=== PATIENT | female | born 1940 | race Caucasian/White ===

== ENCOUNTER 2016-10-13 01:46 | Emergency (ER) | payer OTHER ==
[2016-10-13 02:03] VITALS: BMI 30.1
--- NOTE | 2016-10-13 02:34 | DR.EXTPAIN ---
HPI - Time seen Time seen: 02:10 - PCP Primary Care Physician: CHRIS - HPI Comment HPI Comment: FELL AT HOME. LT HIP, LOWER BACK PAIN AND NECK PAIN. HEADACHE, NO LOC. WAS ALREADY WHEELCHAIR BOUND MOSTLY. [facility] AND EMS RESPONDED AND TRANSPORTED HER TO ED. PATIENT SLEEPY BUT WAKES UP AND ANSWER QUESTIONS. - Complaint/Symptoms Chief Complaint Doctor Comments: FELL, LT HIP AND NECK PAIN, AND LOWER BACK PAIN. HAVING HEADACHE. Chief Complaint:: PUSHED MEDICAL ALERT BUTTON AFTER FALLING FROM WHEELCHAIR IN BATHROOM AT HOME. COMPLAIN OF PAIN TO LEFT HIP - Nurses notes reviewed Nurses Notes Review: Yes - Source History Provided: Patient, EMS - Mode of arrival Mode of Arrival: EMS - Timing Onset of Chief Complaint: 10/13/16 - Context History of: Arthritis, Hip Operation (RT) - Associated signs and symptoms Associated Signs and Symptoms: Pain, Swelling, Bruising PMH - PMH Past Medical History: Yes Past Medical History: Anxiety, Arthritis, Asthma, CHF, COPD, Coronary Artery Disease, CVA, Dementia, Depression, Dyslipidemia, GERD, Gout, Hypertension, Hypothyroidism, Kidney Stones Past Surgical History: Yes Surgical History: Abdominal Surgery, [employer] Surgery, Hysterectomy, Joint Replacement - Family History History of Family Medical Conditions: Yes Family Medical History: Coronary Artery Disease, Heart Failure, Hypertension - Social History Do you use any recreational Drugs:: No Lives With: Family Lives Where: Home - infectious screening In the last 2 months have you had wt loss of >10#?: NO Have you had fever, night sweats or hemotysis?: No Have you traveled outside the country in the last 6 months?: No Isolation: Standard ROS - Review of Systems Constitutional: Weakness, Fatigue. negative: Chills, Fever Eyes: negative: Eye Pain, Discharge ENTM: negative: Ear Pain, Nose Discharge, Nose Congestion, Throat Pain Respiratoy: negative: Productive Cough, Non-Productive Cough, Short of Breath, Wheezing, Hemoptysis Cardiovascular: Edema. negative: Chest Pain Gastrointestinal/Abdominal: negative: Abdominal Pain, Constipation, Diarrhea, Nausea, Vomiting Genitourinary: negative: Dysuria, Hematuria Neurological: Headache, Numbness (CHRONIC), Weakness Musculoskeletal: Back Pain, Joint Swelling, Muscle Pain, Neck Pain, Left, Hip Integumentary: No Symptoms Reported Hematologic/Lymphatic: Easy Bruising Endocrine: No Symptoms Reported All Other Systems: Reviewed and Negative PE - Vital Signs Vitals: Temperature 97.0 F Pulse Rate [Right] 75 Pulse Rate 70 Respiratory Rate 18 Blood Pressure [Right Arm] 162/87 Blood Pressure [Left Arm] 119/58 Blood Pressure 140/78 O2 Sat by Pulse Oximetry 98 - General Limitations: No Limitations General Appearance: Alert (BUT FULLY AROUSABLE.), Other - Head Head Exam: Normal Inspection - Eyes Eye exam: PERRL, EOMI. negative: Scleral Icterus, Conjunctival Injection - ENT ENT Exam: Normal Oropharynx, Normal External Ear Exam, Mucous Membranes Moist, TM's Normal Bilaterally - Neck Neck Exam: Trachea Midline, Tenderness (POST LOWER NECK) - Chest Chest Inspection: Symmetric Chest Wall Rise - Respiratory Respiratory Exam: Normal Lung Sounds Bilat Respiratory Exam: Bilateral Clear to Auscultation - Cardiovascular Cardiovascular Exam: Regular Rate, Normal Rhythm, Normal Heart Sounds - Abdominal Exam Abdominal Exam: Normal Bowel Sounds, Soft. negative: Tenderness - Extremities Extremities Exam: Tenderness (LEFT HIP.), Joint Swelling (LT HIP) - Back Back Exam: Tenderness (LOWER BACK), Paraspinal Tenderness - Neurological Neurological Exam: Alert, Oriented X3 - Psychiatric Psychiatric Exam: Other (SLEEPY) - Skin Skin Exam: Erythema MDM - Differential Diagnosis Differential Diagnosis: Contusion, Fracture, Sprain Course - Treatment Treatment: SEE ORDERS. PATIENT WOKE UP AND WAS FULLY ALERT BY THE TIME XRAY REPORT WERE DISCUSS. - Education/Counseling Education/Counseling: Patient, Education Educated On: Diagnosis, Needs for Follow Up ROR - XRAY XRAY Interpreted by: Radiologist XRAY Findings: REPORT DISCUSS WITH PATIENT. - Diagnosis Discharge Problem: Multiple contusions Repetitive strain injury of cervical spine Qualifiers: Encounter type: initial encounter Qualified Code(s): S16.1XXA - Strain of muscle, fascia and tendon at neck level, initial encounter Sprain hip/thigh Qualifiers: Encounter type: initial encounter Laterality: left Qualified Code(s): S73.102A - Unspecified sprain of left hip, initial encounter Lower back pain Qualifiers: Chronicity: acute Back pain laterality: bilateral Sciatica presence: without sciatica Qualified Code(s): M54.5 - Low back pain - Discharge Plan Disposition: 01 HOME, SELF-CARE Condition: Stable - Follow ups/Referrals Follow ups/Referrals: NATHALY PEREZ [Primary Care Provider] - 3 days - Instructions Instructions: Cervical Strain and Sprain With Rehab-SportsMed, Hip Pain, Lumbosacral Strain Additional Instructions: RETURN TO ED IF WORSE. CONTINUE HOME MEDICATIONS FOR PAIN.
--- NOTE | 2016-10-13 03:45 | RAD ---
EXAM: Left hip x-ray INDICATION: Hip Pain COMPARISION: No priors for comparison TECHNIQUE: Two views FINDINGS: There is complete loss of the left hip joint space superiorly. There is subchondral cyst formation a nd sclerosis consistent with advanced osteoarthritis. There is a right hip arthroplasty. The visuali zed bones of the pelvis are intact. IMPRESSION: Severe left hip osteoarthritis. No acute bony abnormality. Reported By:
--- NOTE | 2016-10-13 03:54 | CT ---
EXAM: CT CERVICAL SPINE WITHOUT CONTRAST INDICATION: Fall, neck pain COMPARISION: No priors TECHNIQUE: Axial CT examination of the cervical spine was performed without intravenous contrast. Coronal and s agittal planes were reconstructed using the axial data. FINDINGS: There are erosions involving the odontoid process of C2. Advanced facet arthropathy is present bilat erally at C3-4 creating a grade 1 spondylolisthesis. Advanced degenerative disc changes are present C5-6. Milder degenerative disc changes are seen in the remainder the cervical spine. No acute fractu re or subluxation identified. The central canal is patent. IMPRESSION: 1: Odontoid erosions are present. These changes may be associated with rheumatoid arthritis. 2: Advanced facet arthropathy is present bilaterally at C3-4 which creates a grade 1 spondylolisthes is. 3: Degenerative disc changes are seen throughout the cervical spine and most advanced at C5-6. Reported By:
--- NOTE | 2016-10-13 03:55 | CT ---
EXAM: CT BRAIN WITHOUT CONTRAST INDICATION: Fall, headache COMPARISION: No Priors TECHNIQUE: Routine axial CT of the brain was performed without intravenous contrast. FINDINGS: There is bilateral cortical atrophy. The ventricular system is not abnormally dilated. No intra or extra-axial mass or hemorrhage. The hubbard-white junction is preserved. There is no evidence of subacu te ischemic change. The basilar cisterns are clear. The skull is intact. The paranasal sinuses and mastoid air cells are clear. IMPRESSION: There is bilateral cortical atrophy as described above. No acute abnormality identified. Reported By:
--- NOTE | 2016-10-13 03:57 | CT ---
EXAM: CT LUMBAR SPINE WITHOUT CONTRAST INDICATION: Fall, low back pain COMPARISION: No priors TECHNIQUE: Axial CT examination of the lumbar spine was performed without intravenous contrast. Coronal and sag ittal planes were reconstructed using the axial data. FINDINGS: Old compression fractures with vertebroplasty are present at T12, L1, and L3. There is a mild concav e superior endplate insufficiency fracture at L4. There is diffuse osteopenia. No acute fracture christiano ntified. Chronic retropulsed posterior vertebral fractures are present at T12, L1, L3, and L4. The f acets are intact. IMPRESSION: No acute abnormalities identified. Multiple old compression fractures of the lumbar and lower thorac ic spine are present. There is been prior vertebroplasty at multiple levels as described above. Reported By:
[2016-10-13 05:10] VITALS: BP 162/87
== END 2016-10-13 05:32 | disposition home or self-care (01) ==
LOC: ER 01:46
DX: S16.1XXA Strain of muscle, fascia and tendon at neck level, initial encounter (principal); S73.102A Unspecified sprain of left hip, initial encounter; T14.8 Other injury of unspecified body region; M54.5 Low back pain; M16.12 Unilateral primary osteoarthritis, left hip; M12.9 Arthropathy, unspecified; W19.XXXA Unspecified fall, initial encounter; Y92.009 Unspecified place in unspecified non-institutional (private) residence as the place of occurrence of the external cause
CPT/HCPCS: 70450; 72125; 72131; 73501; 96365; 99283

== ENCOUNTER 2023-05-28 00:06 | Inpatient (IN) ==
--- NOTE | 2023-05-28 00:31 | DR.EXTPAIN ---
HPI Time seen Time Seen by Provider: 05/28/23 00:27 PCP Primary Care Physician: Dr. Calvillo Complaint/Symptoms Chief Complaint Doctor Comments: Patient complain of bilateral lower leg pain and swelling for about 2 weeks has gotten worse. States that she has been taking her medicine her diuretics and all but has not been able to urinate and she has now problems ambulating. Chief Complaint:: Patient brought into the Ed today by EMS with c/o bilateral lower leg pain and swelling Source History Provided: Patient and EMS Mode of arrival Mode of Arrival: EMS Timing Onset of Chief Complaint: 05/14/23 PMH PMH Past Medical History: Yes Past Medical History: CHF Past Surgical History: No Surgical History: Abdominal Surgery, [employer] Surgery, Hysterectomy, Joint Replacement and Ortho Surgery Family History History of Family Medical Conditions: No Family Medical History: Coronary Artery Disease, Heart Failure and Hypertension Social History Does patient currently use any type of tobacco product: No Have you used tobacco products in the last 12 months: No Type of Tobacco Use: None Does any household member use tobacco: No Alcohol Use: None Do you use any recreational Drugs:: No Lives With: Alone Lives Where: Home Infectious screening In the last 2 months have you had wt loss of >10#?: NO Have you had fever, night sweats or hemotysis?: No Have you traveled outside the country in the last 6 months?: No Isolation: Standard ROS Review of Systems Constitutional: Other (bilateral lower leg pain) Eyes: No Symptoms Reported ENTM: No Symptoms Reported Respiratoy: Non-Productive Cough and Wheezing Cardiovascular: No Symptoms Reported Gastrointestinal/Abdominal: No Symptoms Reported Genitourinary: No Symptoms Reported Neurological: No Symptoms Reported Musculoskeletal: Leg (bilateral lower leg pain) Integumentary: No Symptoms Reported Hematologic/Lymphatic: No Symptoms Reported Endocrine: No Symptoms Reported Psychiatric: No Symptoms Reported PE Vital Signs Vitals: Vital Signs Temperature 98.1 F Pulse Rate 69 Respiratory Rate 20 Blood Pressure 127/72 O2 Sat by Pulse Oximetry 99 General Limitations: No Limitations General Appearance: In Distress (mild distress) Head Head Exam: Normal Inspection, Atraumatic and Normocephalic Eyes Eye exam: Normal Appearance ENT ENT Exam: Mucous Membranes Moist Neck Neck Exam: Normal Inspection, Full ROM and Trachea Midline Chest Chest Inspection: Normal Inspection and Symmetric Chest Wall Rise Respiratory Respiratory Exam: Other (minimal wheezing) Respiratory Exam: Bilateral: Rales Cardiovascular Cardiovascular Exam: Regular Rate Abdominal Exam Abdominal Exam: Normal Inspection Extremities Extremities Exam: Tenderness (bilateral lower legs) and Edema (bilateral lower legs) Upper Extremities Shoulder Exam: Normal Inspection Arm Exam: Normal Inspection Elbow Exam: Normal Inspection Forearm Exam: Normal Inspection Hand Exam: Normal Inspection Lower Extremities Hip/Pelvis Exam: Normal Inspection and Full ROM Upper Leg Exam: Normal Inspection Knee Exam: Normal Inspection Lower Leg Exam: Tenderness and Swelling Ankle Exam: Tenderness and Swelling Foot/Toe Exam: Tenderness and Swelling Gait Exam: Not Tested/Not Observed Back Back Exam: Normal Inspection Neurological Neurological Exam: Alert, Oriented X3 and CN II-XII Intact Psychiatric Psychiatric Exam: Depressed Skin Skin Exam: Warm, Dry and Intact MDM Differential Diagnosis Differential Diagnosis: Other (chf,urti,peripheral neuropathy) COURSE Treatment Treatment: Patient remained relatively stable during ER evaluation. She was found to have mild CHF with a BNP of 486 and she had some little bit to decrease GFR was 43 BUN was slightly elevated 139 creatinine was little bit elevated at 1.26. We did a check x-ray and interpreted as having some mild CHF with c ardiomegaly patient did have a little bit of pulmonary edema left greater than right. There was no infiltrate noted. Patient was given 40 of Lasix IV in the ER and she had a Moore catheter placed. I talked to Dr. Markham at 022 3 AM and he stated to refer the patient to observation for further treatment of mild CHF and pulmonary edema. [facility] Labs Reviewed Laboratory Results Reviewed?: Yes 05/28/23 00:58 05/28/23 00:58 Laboratory: WBC 5.1 X10^3/uL (3.6-10.0) 05/28/23 00:58 RBC 3.48 X10^6/uL (3.5-5.4) L 05/28/23 00:58 Hgb 11.1 g/dL (12.0-16.0) L 05/28/23 00:58 Hct 33.7 % (36.0-47.0) L 05/28/23 00:58 MCV 96.8 fL (80.0-100.0) 05/28/23 00:58 MCH 31.7 pg (27.0-34.0) 05/28/23 00:58 MCHC 32.8 g/dL (33.0-35.0) L 05/28/23 00:58 RDW 15.4 % (11.6-16.5) 05/28/23 00:58 Plt Count 135 X10^3/uL (150.0-450.0) L 05/28/23 00:58 MPV 8.4 fL (7.4-11.0) 05/28/23 00:58 Neut % (Auto) 54.1 % (42.0-75.0) 05/28/23 00:58 Lymph % (Auto) 24.1 % (21.0-51.0) 05/28/23 00:58 [place] % (Auto) 13.1 % (0.0-13.0) H 05/28/23 00:58 Eos % (Auto) 7.7 % (0.9-2.9) H 05/28/23 00:58 Baso % (Auto) 1.0 % (0.2-1.0) 05/28/23 00:58 Neut # (Auto) 2.7 x10^3/uL (2.2-4.8) 05/28/23 00:58 Lymph # (Auto) 1.2 X10^3/uL (1.3-2.9) L 05/28/23 00:58 [place] # (Auto) 0.7 x10^3/uL (0.3-0.8) 05/28/23 00:58 Eos # (Auto) 0.4 x10^3/uL (0.0-0.2) H 05/28/23 00:58 Baso # (Auto) 0.1 X10^3/uL (0.0-0.1) 05/28/23 00:58 Absolute Nucleated RBC 0.1 /100WBC 05/28/23 00:58 PT 39.5 SECONDS (11.8-14.3) 05/28/23 00:58 INR Target Range - 05/28/23 00:58 INR 4.15 (0.8-1.3) H 05/28/23 00:58 APTT 46.0 SECONDS (22.9-36.5) H 05/28/23 00:58 PTT Comment - 05/28/23 00:58 Sodium 137 mmol/L (136-145) 05/28/23 00:58 Corrected Sodium TNP 05/28/23 00:58 Potassium 4.3 mmol/L (3.5-5.1) 05/28/23 00:58 Chloride 104 mmol/L (98-107) 05/28/23 00:58 Carbon Dioxide 29.9 mmol/L (21-32) 05/28/23 00:58 BUN 39 mg/dL (7-18) H 05/28/23 00:58 Creatinine 1.26 mg/dL (0.55-1.02) H 05/28/23 00:58 Est GFR (MDRD) Af Amer 52 (>60) L 05/28/23 00:58 Est GFR (MDRD) Non-Af 43 (>60) L 05/28/23 00:58 Glucose 100 mg/dL (65-99) H 05/28/23 00:58 Calcium 8.6 mg/dL (8.5-10.1) 05/28/23 00:58 Corrected Calcium TNP 05/28/23 00:58 Total Bilirubin 0.30 mg/dL (0.2-1.0) 05/28/23 00:58 AST 26 Units/L (15-37) 05/28/23 00:58 ALT 39 Units/L (12-78) 05/28/23 00:58 Alkaline Phosphatase 89 Units/L (46-116) 05/28/23 00:58 Creatine Kinase 65 Units/L (26-192) 05/28/23 00:58 Troponin I High Sens 6.9 ng/L (4.0-60.0) 05/28/23 00:58 B-Natriuretic Peptide 486 pg/mL (0-79) H 05/28/23 00:58 Total Protein 6.9 g/dL (6.4-8.2) 05/28/23 00:58 Albumin 3.5 g/dL (3.4-5.0) 05/28/23 00:58 Globulin 3.4 g/dL (2.5-4.5) 05/28/23 00:58 Albumin/Globulin Ratio 1.0 Ratio (1.1-2.1) L 05/28/23 00:58 SARS-CoV-2 (PCR) Negative (NEGATIVE) 05/28/23 00:50 Influenza Type A (PCR) Negative (NEGATIVE) 05/28/23 00:50 Influenza Type B (PCR) Negative (NEGATIVE) 05/28/23 00:50 RSV (PCR) Negative (NEGATIVE) 05/28/23 00:50 Opioid Opioid Risk Tool Age (Baljeet box if 16-45): No History of Preadolescent Sexual Abuse: No Total: 0 Total Score Risk Category: Low Risk Copyright: [facility] predicting aberrant behaviors Discharge Plan Diagnosis Discharge Problem: CHF (congestive heart failure), Physical deconditioning, Pulmonary edema Discharge Plan Patient Disposition: 09 ADMITTED INPATIENT Condition: Stable Prescriptions: No Action glimepiride 2 mg tablet 2 mg PO BID Qty: 180 3RF Xarelto 15 mg tablet 15 mg PO QDAY Qty: 30 3RF clopidogrel 75 mg tablet 75 mg PO QDAY Qty: 90 3RF oxybutynin chloride 5 mg tablet 5 mg PO BID Qty: 90 3RF atorvastatin 20 mg tablet 20 mg PO HS Qty: 90 3RF levothyroxine 25 mcg tablet 25 mcg PO QDAY Qty: 90 3RF alprazolam 0.5 mg tablet 0.5 mg PO TID MDD 3 PRN (Reason: anxiety) 30 Days Qty: 90 0RF duloxetine 60 mg capsule,delayed release(DR/EC) 60 mg PO QDAY Qty: 90 3RF oxycodone-acetaminophen 10-325 mg tablet 1 tab PO TID MDD 3 PRN (Reason: pain) 30 Days Qty: 90 0RF furosemide 40 mg tablet 40 mg PO BID Qty: 180 3RF allopurinol 100 mg tablet 100 mg PO DAILY Qty: 90 3RF metoprolol succinate 50 mg tablet extended release 24 hr 50 mg PO QDAY Qty: 90 3RF ropinirole 0.5 mg tablet 0.5 mg PO QPM Qty: 90 3RF (DME) OneTouch Verio test strips Strip See Rx Instructions .ROUTE BID Qty: 10 Rx Instructions: As directed vitamin M22-nrsfw acid 2,500-400 mcg tablet,disintegrating 1 tab PO QDAY Qty: 90 3RF diltiazem HCl [Cardizem CD] 120 mg capsule,extended release 24hr 120 mg PO QDAY Qty: 90 3RF trazodone 100 mg tablet 100 mg PO QHS Qty: 30 3RF pregabalin 75 mg capsule 75 mg PO BID 30 Days Qty: 60 3RF rivastigmine tartrate 4.5 mg capsule 4.5 mg PO BID Qty: 60 3RF potassium chloride 20 mEq tablet,ER particles/crystals 20 meq PO QDAY Qty: 90 3RF celecoxib [Celebrex] 200 mg capsule 200 mg PO QDAY Qty: 90 3RF aspirin [Aspir-Low] 81 MG tablet,delayed release (DR/EC) 81 mg PO DAILY levothyroxine 1 TAB tablet 125 mcg PO DAILY budesonide-formoterol [Symbicort] 1 AER HFA aerosol inhaler 1 aer Inhalation BID pantoprazole 40 MG tablet,delayed release (DR/EC) 1 tab PO DAILY magnesium hydroxide [Milk of Magnesia] 400 MG/5 ML suspension 10 ml PO QID Qty: 1 3RF ipratropium-albuterol 3 ML solution for nebulization 1 ea NEB TID Qty: 1 3RF Rx Instructions: X 10 DAYS. ascorbic acid (vitamin C) [Vitamin C] 500 MG tablet 500 mg PO BID Qty: 60 3RF Health Concerns: Post Hospitalization: new medications and changes needed to prevent readmission or further decline. Pt educated and given instructions on all concerns. Plan of Treatment: Continue with present treatment and follow up plan. Pt is to keep follow up appointment as instructed and take medications as ordered. Orders to Discharge Patient Discharge Orders: Transfer (Routine); Ordered 05/28/23 Ordered By: Oneil Leiva Follow ups/Referrals Follow ups/Referrals: Gwyn Calvillo [Primary Care Provider] - 3 days Instructions Stand Alone Forms: Post Hospital Follow Up Care
--- NOTE | 2023-05-28 01:03 | EKG ---
Test Reason : edema Blood Pressure : */* mmHG Vent. Rate : 69 BPM Atrial Rate : 42 BPM P-R Int : * ms QRS Dur : 188 ms QT Int : 518 ms P-R-T Axes : * -64 100 degrees QTc Int : 555 ms Ventricular-paced rhythm Abnormal ECG No previous ECGs available Confirmed by Deven Patino ([id number]) on 05/28/2023 2:39:00 PM Referred By: Confirmed By: Deven Patino
[2023-05-28 01:08] LABS: BASOPHILS # (AUTO) 0.1 X10^3/uL (0.0-0.1); EOSINOPHILS # (AUTO) 0.4 x10^3/uL (0.0-0.2); EOSINOPHILS % (AUTO) 7.7 % (0.9-2.9); HEMATOCRIT 33.7 % (36.0-47.0); HEMOGLOBIN 11.1 g/dL (12.0-16.0); LYMPHOCYTES # (AUTO) 1.2 X10^3/uL (1.3-2.9); LYMPHOCYTES % (AUTO) 24.1 % (21.0-51.0); MEAN CORPUSCULAR HEMOGLOBIN 31.7 pg (27.0-34.0); MEAN CORPUSCULAR HGB CONC 32.8 g/dL (33.0-35.0); MEAN CORPUSCULAR VOLUME 96.8 fL (80.0-100.0); MEAN PLATELET VOLUME 8.4 fL (7.4-11.0); MONOCYTES # (AUTO) 0.7 x10^3/uL (0.3-0.8); MONOCYTES % (AUTO) 13.1 % (0.0-13.0); NEUTROPHILS # (AUTO) 2.7 x10^3/uL (2.2-4.8); NEUTROPHILS % (AUTO) 54.1 % (42.0-75.0); PLATELET COUNT 135 X10^3/uL (150.0-450.0); RED BLOOD COUNT 3.48 X10^6/uL (3.5-5.4); RED CELL DISTRIBUTION WIDTH 15.4 % (11.6-16.5); WHITE BLOOD COUNT 5.1 X10^3/uL (3.6-10.0)
[2023-05-28 01:13] LABS: INR 4.15 (0.8-1.3)
[2023-05-28 01:21] LABS: ALANINE AMINOTRANSFERASE 39 Units/L (12-78); ALBUMIN 3.5 g/dL (3.4-5.0); ALKALINE PHOSPHATASE 89 Units/L (46-116); ASPARTATE AMINO TRANSFERASE 26 Units/L (15-37); BLOOD UREA NITROGEN 39 mg/dL (7-18); CALCIUM 8.6 mg/dL (8.5-10.1); CARBON DIOXIDE 29.9 mmol/L (21-32); CHLORIDE 104 mmol/L (98-107); CREATINE KINASE 65 Units/L (26-192); CREATININE 1.26 mg/dL (0.55-1.02); GLUCOSE 100 mg/dL (65-99); POTASSIUM 4.3 mmol/L (3.5-5.1); SODIUM 137 mmol/L (136-145); TOTAL PROTEIN 6.9 g/dL (6.4-8.2); eGFR NON BLACK RACES 43 (>60)
[2023-05-28] MEDS ORDERED: LASIX IVP ONE ×2 (01:44→02:00)
[2023-05-28] MEDS ORDERED: PATIENT'S HOME MEDICATION (Oxycodone-Acetaminophen 10-325 mg tablet) PO PRN (03:07)
[2023-05-28] MEDS: DUONEB 0.5 MG/3 MG (3 mL) NEB SCH ×3 (05:45→21:00)
[2023-05-28 06:46] LABS: BASOPHILS % (AUTO) 0.8 % (0.2-1.0); EOSINOPHILS # (AUTO) 0.4 x10^3/uL (0.0-0.2); EOSINOPHILS % (AUTO) 8.1 % (0.9-2.9); HEMATOCRIT 34.8 % (36.0-47.0); HEMOGLOBIN 11.4 g/dL (12.0-16.0); LYMPHOCYTES # (AUTO) 1.4 X10^3/uL (1.3-2.9); LYMPHOCYTES % (AUTO) 25.6 % (21.0-51.0); MEAN CORPUSCULAR HEMOGLOBIN 31.9 pg (27.0-34.0); MEAN CORPUSCULAR HGB CONC 32.9 g/dL (33.0-35.0); MONOCYTES # (AUTO) 0.7 x10^3/uL (0.3-0.8); MONOCYTES % (AUTO) 12.2 % (0.0-13.0); NEUTROPHILS # (AUTO) 2.9 x10^3/uL (2.2-4.8); NEUTROPHILS % (AUTO) 53.3 % (42.0-75.0); PLATELET COUNT 150 X10^3/uL (150.0-450.0); RED BLOOD COUNT 3.59 X10^6/uL (3.5-5.4); RED CELL DISTRIBUTION WIDTH 15.1 % (11.6-16.5); WHITE BLOOD COUNT 5.5 X10^3/uL (3.6-10.0)
[2023-05-28 07:01] LABS: ALANINE AMINOTRANSFERASE 43 Units/L (12-78); ALBUMIN 3.7 g/dL (3.4-5.0); ALKALINE PHOSPHATASE 93 Units/L (46-116); ASPARTATE AMINO TRANSFERASE 32 Units/L (15-37); BLOOD UREA NITROGEN 39 mg/dL (7-18); CALCIUM 8.8 mg/dL (8.5-10.1); CARBON DIOXIDE 29.8 mmol/L (21-32); CHLORIDE 103 mmol/L (98-107); COR NA(FOR HYPERGLY) 139 mmol/L (136-145); CREATININE 1.24 mg/dL (0.55-1.02); GLUCOSE 115 mg/dL (65-99); POTASSIUM 4.1 mmol/L (3.5-5.1); SODIUM 139 mmol/L (136-145); TOTAL PROTEIN 7.3 g/dL (6.4-8.2); eGFR NON BLACK RACES 44 (>60)
[2023-05-28] MEDS ORDERED: ROXICODONE TAB 5 MG PO PRN (07:36)
[2023-05-28] MEDS ORDERED: TYLENOL 325 MG TAB PO PRN (07:37)
[2023-05-28] MEDS ORDERED: BUDESONIDE FORMOTEROL IN SCH (09:00)
[2023-05-28] MEDS ORDERED: LYRICA CAP 75 mg PO SCH (09:00)
[2023-05-28] MEDS ORDERED: ASPIRIN EC 81 MG PO SCH (09:00)
--- NOTE | 2023-05-28 09:01 | RAD ---
EXAM: CHEST, 1 VIEW HISTORY: Edema COMPARISON: None available. FINDINGS: The trachea is midline. The cardiac silhouette is enlarged with a tortuous thoracic aorta. A pacing device overlying the left hemithorax is observed. The lungs are clear without focal infiltrate or effusion. The bony thorax is unremarkable. IMPRESSION: No acute cardiopulmonary disease. THIS IS AN ELECTRONICALLY VERIFIED FINAL REPORT 05/28/2023 8:58 AM - Electronically signed by Jayant Orellana MD
[2023-05-28] MEDS: PULMICORT NEB TX 0.5 MG NEB SCH ×2 (09:15→21:00)
[2023-05-28] MEDS ORDERED: TUSSIONEX PENNKINETIC SUSP PO PRN (09:31)
[2023-05-28] MEDS ORDERED: NS 1/2 1,000 ML IV 1,000 ML IV ONE ×2 (10:09→19:50)
[2023-05-28] MEDS: K-DUR TAB 20 MEQ PO SCH (10:40)
[2023-05-28] MEDS: DITROPAN TAB 5 MG PO SCH ×2 (10:40→21:15)
[2023-05-28] MEDS: CYMBALTA PO SCH (10:40)
[2023-05-28] MEDS: XARELTO PO SCH (10:41)
[2023-05-28] MEDS: LASIX IVP SCH ×2 (10:41→16:14)
[2023-05-28] MEDS: SYNTHROID 125 mcg TAB PO SCH (10:41)
[2023-05-28] MEDS: NS 1/2 1,000 ML IV 1,000 ML IV SCH ×2 (10:42→23:07)
[2023-05-28] MEDS: ROBITUSSIN DM PO SCH ×4 (10:42→21:14)
[2023-05-28] MEDS: ROCEPHIN VIAL 1 GRAM 1 G in NS 100 ML IV 100 ML IV SCH (10:42)
[2023-05-28] MEDS: VIBRAMYCIN 100 MG in D5W 250 ML IV 250 ML IV SCH ×2 (10:42→21:21)
[2023-05-28] MEDS: PERCOCET TAB 5/325 MG PO PRN ×2 (11:00→16:13)
[2023-05-28] MEDS: LIORESAL PO SCH ×2 (13:04→21:16)
--- NOTE | 2023-05-28 19:47 | DR.H&P ---
H&P History & Physical for Day of: H&P Date: 05/28/23 Chief Complaint Chief Complaint: Bilateral leg pain and increasing shortness of breath over 2 weeks. Allergies Allergies Allergy/AdvReac Type Severity Reaction Status Date / Time Metoclopramide Allergy Verified 10/13/16 01:48 [From Reglan] Nalbuphine [From Nubain] Allergy Verified 10/13/16 01:48 History of Present Illness History of Present Illness: This is a pleasant 82-year-old white female who came in earlier this morning with chief complaint of bilateral lower extremity pain and increasing shortness of breath over 2 weeks now. The patient was very weak in the emergency department and was having difficulty ambulating. The ER physician thought she would benefit from inpatient treatment to help diurese her to see if this helps her ambulate better. This morning she is complaining of right knee pain and right deltoid pain. She does have a muscle spasm in the right deltoid as cordlike in nature. I wrote her for baclofen this morning to see if this helps reduce the pain. She reports she fell 3 months ago and has been hurting ever since. She also reports that she is coughing up yellow phlegm, and on a lung exam, she has diffuse rhonchi with expiratory wheezing. Will go ahead and start her on pneumonia protocol repeat a chest x-ray this morning as well as knee x-rays that she has complained of bilateral knee pain. She also is complaining of right heel foot pain that is burning in nature. Past Medical History Past Medical History: CHF Additional Medical History: Cataracts, Parkinson's Disease, Emphysema, Cardiac Arrhythmia, Pulmonary Embolism, Esophageal Disorders, Back Pain, Blood Transfusion after giving Past Surgical History Surgical History: DIABETIC EDUCATOR Surgery, Hysterectomy, Joint Replacement, Ortho Surgery and Other Additional Surgical History: Pacemaker, Right SIN, Back Surgery x 3, Bladder Tact, Cataract Surgery Family History Family Medical History: Coronary Artery Disease, Heart Failure and Hypertension Social History Does patient currently use any type of tobacco product: No Have you used tobacco products in the last 12 months: No Type of Tobacco Use: None Does any household member use tobacco: No Alcohol Use: None Drug Use: None Medications Home Medications: Home Medications Medication Instructions Recorded Confirmed Type aspirin 81 mg tablet,delayed 81 mg PO DAILY 07/26/13 05/09/23 History release (Aspir-Low) budesonide-formoterol HFA 160 1 aer inhalation BID 07/26/13 05/09/23 History mcg-4.5 mcg/actuation aerosol inhaler (Symbicort) pantoprazole 40 mg tablet,delayed 1 tab PO DAILY 07/15/15 05/09/23 History release blood sugar diagnostic (TeresaTouch #10 ea 01/07/23 05/09/23 History Verio test strips) rivastigmine tartrate 3 mg capsule 3 mg PO BID 05/28/23 05/28/23 History Labs 05/28/23 05:40 05/28/23 05:40 Labs: Laboratory WBC 5.5 X10^3/uL (3.6-10.0) 05/28/23 05:40 RBC 3.59 X10^6/uL (3.5-5.4) 05/28/23 05:40 Hgb 11.4 g/dL (12.0-16.0) L 05/28/23 05:40 Hct 34.8 % (36.0-47.0) L 05/28/23 05:40 MCV 97.0 fL (80.0-100.0) 05/28/23 05:40 MCH 31.9 pg (27.0-34.0) 05/28/23 05:40 MCHC 32.9 g/dL (33.0-35.0) L 05/28/23 05:40 RDW 15.1 % (11.6-16.5) 05/28/23 05:40 Plt Count 150 X10^3/uL (150.0-450.0) 05/28/23 05:40 MPV 9.0 fL (7.4-11.0) 05/28/23 05:40 Neut % (Auto) 53.3 % (42.0-75.0) 05/28/23 05:40 Lymph % (Auto) 25.6 % (21.0-51.0) 05/28/23 05:40 [place] % (Auto) 12.2 % (0.0-13.0) 05/28/23 05:40 Eos % (Auto) 8.1 % (0.9-2.9) H 05/28/23 05:40 Baso % (Auto) 0.8 % (0.2-1.0) 05/28/23 05:40 Neut # (Auto) 2.9 x10^3/uL (2.2-4.8) 05/28/23 05:40 Lymph # (Auto) 1.4 X10^3/uL (1.3-2.9) 05/28/23 05:40 [place] # (Auto) 0.7 x10^3/uL (0.3-0.8) 05/28/23 05:40 Eos # (Auto) 0.4 x10^3/uL (0.0-0.2) H 05/28/23 05:40 Baso # (Auto) 0.0 X10^3/uL (0.0-0.1) 05/28/23 05:40 Absolute Nucleated RBC 0.1 /100WBC 05/28/23 05:40 PT 39.5 SECONDS (11.8-14.3) 05/28/23 00:58 INR Target Range - 05/28/23 00:58 INR 4.15 (0.8-1.3) H 05/28/23 00:58 APTT 46.0 SECONDS (22.9-36.5) H 05/28/23 00:58 PTT Comment - 05/28/23 00:58 Sodium 139 mmol/L (136-145) 05/28/23 05:40 Corrected Sodium 139 mmol/L (136-145) 05/28/23 05:40 Potassium 4.1 mmol/L (3.5-5.1) 05/28/23 05:40 Chloride 103 mmol/L (98-107) 05/28/23 05:40 Carbon Dioxide 29.8 mmol/L (21-32) 05/28/23 05:40 BUN 39 mg/dL (7-18) H 05/28/23 05:40 Creatinine 1.24 mg/dL (0.55-1.02) H 05/28/23 05:40 Est GFR (MDRD) Af Amer 53 (>60) L 05/28/23 05:40 Est GFR (MDRD) Non-Af 44 (>60) L 05/28/23 05:40 Glucose 115 mg/dL (65-99) H 05/28/23 05:40 Calcium 8.8 mg/dL (8.5-10.1) 05/28/23 05:40 Corrected Calcium TNP 05/28/23 05:40 Total Bilirubin 0.50 mg/dL (0.2-1.0) 05/28/23 05:40 AST 32 Units/L (15-37) 05/28/23 05:40 ALT 43 Units/L (12-78) 05/28/23 05:40 Alkaline Phosphatase 93 Units/L (46-116) 05/28/23 05:40 Creatine Kinase 65 Units/L (26-192) 05/28/23 00:58 Troponin I High Sens 6.9 ng/L (4.0-60.0) 05/28/23 00:58 B-Natriuretic Peptide 486 pg/mL (0-79) H 05/28/23 00:58 Total Protein 7.3 g/dL (6.4-8.2) 05/28/23 05:40 Albumin 3.7 g/dL (3.4-5.0) 05/28/23 05:40 Globulin 3.6 g/dL (2.5-4.5) 05/28/23 05:40 Albumin/Globulin Ratio 1.0 Ratio (1.1-2.1) L 05/28/23 05:40 SARS-CoV-2 (PCR) Negative (NEGATIVE) 05/28/23 00:50 Influenza Type A (PCR) Negative (NEGATIVE) 05/28/23 00:50 Influenza Type B (PCR) Negative (NEGATIVE) 05/28/23 00:50 RSV (PCR) Negative (NEGATIVE) 05/28/23 00:50 Review of Systems Constitutional: Weakness and Malaise Eyes: No Symptoms Reported ENT: No Symptoms Reported Respiratory: Cough, Shortness of Breath and SOB with Excertion; denies Wheezing Cardiovascular: Orthopnea and Edema Gastrointestinal: No Symptoms Reported Genitourinary: No Symptoms Reported Musculoskeletal: Shoulder Pain, Arm Pain and Back Pain Skin: No Symptoms Reported Neurological: Weakness Physical Exam Vital Signs: Vital Signs Temperature 97.7 F Temperature 98.7 F Pulse Rate [Left Brachial] 68 Pulse Rate 70 Respiratory Rate 18 Respiratory Rate 19 Respiratory Rate 19 Blood Pressure [Right Arm] 120/82 Blood Pressure [Right Arm] 120/78 O2 Sat by Pulse Oximetry 100 O2 Sat by Pulse Oximetry 100 O2 Sat by Pulse Oximetry 100 O2 Sat by Pulse Oximetry 99 Oriented: Normal, Time, Person and Place Eyes: Normal Ear: Normal Nose: Normal Throat: Normal Respiratory: Clear Throughout Cardiovascular: Normal Auscultation: Bowel Sounds: Normal Palpation: Normal Tenderness: Normal Skin: Normal Musculoskeletal: Normal Psychiatric: Normal Mood Description: Calm Affect: Normal Speech Pattern: Appropriate Assessment/Plan (1) CHF (congestive heart failure): Status: Acute Plan: Diuresed with IV Lasix. Recheck BNP and chest x-ray tomorrow. (2) Physical deconditioning: Status: Acute Plan: At patient's age and current condition she would be a poor candidate for physical therapy. (3) Pulmonary edema: Status: Acute Plan: Diuresis with IV Lasix. (4) Muscle spasm of right shoulder: Status: Acute Plan: Baclofen 5 mg p.o. 4 times daily for muscle spasm in right deltoid. Review H&P Reviewed: Yes Patient was examined?: Yes
[2023-05-28] MEDS ORDERED: XANAX PO PRN (19:49)
[2023-05-28] MEDS: LIPITOR TAB 20 MG PO SCH (21:14)
[2023-05-28] MEDS: REQUIP PO SCH (21:35)
[2023-05-29] MEDS: NS 1/2 1,000 ML IV 1,000 ML IV SCH ×3 (00:07→16:19)
[2023-05-29] MEDS: LIORESAL PO SCH ×3 (05:20→21:31)
[2023-05-29] MEDS: DUONEB 0.5 MG/3 MG (3 mL) NEB SCH ×4 (06:00→21:32)
--- NOTE | 2023-05-29 06:15 | RAD ---
EXAM: CHEST, 1 VIEW HISTORY: chf, pulmonary edema; COMPARISON: 05/28/2023. TECHNIQUE: AP view of the chest FINDINGS: Left chest wall pacemaker with leads in the right atrium and right ventricle. Cardiac silhouette is stably enlarged. Mediastinal contours appear normal. No consolidation or segmental lung collapse. There is minor thickening of the right minor fissure. IMPRESSION: Minor thickening of the right minor fissure suggests small right pleural effusion. Cardiomegaly. THIS IS AN ELECTRONICALLY VERIFIED FINAL REPORT 05/29/2023 6:12 AM - Electronically signed by Steve Israel MD
[2023-05-29 06:49] LABS: EOSINOPHILS # (AUTO) 0.3 x10^3/uL (0.0-0.2); HEMOGLOBIN 10.4 g/dL (12.0-16.0); MEAN PLATELET VOLUME 8.8 fL (7.4-11.0)
[2023-05-29 07:06] LABS: BASOPHILS % (AUTO) 0.7 % (0.2-1.0); EOSINOPHILS % (AUTO) 7.2 % (0.9-2.9); HEMATOCRIT 31.5 % (36.0-47.0); LYMPHOCYTES # (AUTO) 0.9 X10^3/uL (1.3-2.9); LYMPHOCYTES % (AUTO) 19.8 % (21.0-51.0); MEAN CORPUSCULAR HEMOGLOBIN 31.9 pg (27.0-34.0); MEAN CORPUSCULAR HGB CONC 32.9 g/dL (33.0-35.0); MEAN CORPUSCULAR VOLUME 96.8 fL (80.0-100.0); MONOCYTES # (AUTO) 0.6 x10^3/uL (0.3-0.8); MONOCYTES % (AUTO) 12.1 % (0.0-13.0); NEUTROPHILS # (AUTO) 2.9 x10^3/uL (2.2-4.8); NEUTROPHILS % (AUTO) 60.2 % (42.0-75.0); PLATELET COUNT 123 X10^3/uL (150.0-450.0); RED BLOOD COUNT 3.25 X10^6/uL (3.5-5.4); RED CELL DISTRIBUTION WIDTH 15.1 % (11.6-16.5); WHITE BLOOD COUNT 4.8 X10^3/uL (3.6-10.0)
[2023-05-29 07:10] LABS: ALANINE AMINOTRANSFERASE 33 Units/L (12-78); ALBUMIN 3.3 g/dL (3.4-5.0); ALKALINE PHOSPHATASE 81 Units/L (46-116); ASPARTATE AMINO TRANSFERASE 23 Units/L (15-37); BLOOD UREA NITROGEN 35 mg/dL (7-18); CALCIUM 8.4 mg/dL (8.5-10.1); CARBON DIOXIDE 29.2 mmol/L (21-32); CHLORIDE 101 mmol/L (98-107); CREATININE 1.04 mg/dL (0.55-1.02); GLUCOSE 104 mg/dL (65-99); MAGNESIUM 1.9 mg/dL (2.0-2.9); POTASSIUM 4.4 mmol/L (3.5-5.1); SODIUM 135 mmol/L (136-145); TOTAL PROTEIN 6.4 g/dL (6.4-8.2); eGFR NON BLACK RACES 54 (>60)
--- NOTE | 2023-05-29 07:14 | RAD ---
EXAM:Left knee three viewsHISTORY:PainCOMPARISON:None r.br.br or dislocation noted. Degenerative narrowing of joint spaces, mild at the patellar femoral space and moderately advanced at the medial compartment.IMPRESSION:No acute findings. Osteopenia and osteoarthrosis especially severe at the medial femorotibial space.THIS IS AN ELECTRONICALLY VERIFIED FINAL REPORT05/29/2023 7:10 AM - Electronically signed by Guzman Rosales MD
[2023-05-29] MEDS: ROCEPHIN VIAL 1 GRAM 1 G in NS 100 ML IV 100 ML IV SCH (09:21)
[2023-05-29] MEDS: VIBRAMYCIN 100 MG in D5W 250 ML IV 250 ML IV SCH ×2 (09:21→21:31)
[2023-05-29] MEDS: LASIX IVP SCH ×2 (09:22→16:33)
[2023-05-29] MEDS: XARELTO PO SCH (09:22)
[2023-05-29] MEDS: CYMBALTA PO SCH (09:22)
[2023-05-29] MEDS: DITROPAN TAB 5 MG PO SCH ×2 (09:22→20:51)
[2023-05-29] MEDS: K-DUR TAB 20 MEQ PO SCH (09:23)
[2023-05-29] MEDS: SYNTHROID 125 mcg TAB PO SCH (09:23)
[2023-05-29] MEDS: ROBITUSSIN DM PO SCH ×4 (09:24→20:51)
[2023-05-29] MEDS: PULMICORT NEB TX 0.5 MG NEB SCH ×2 (09:33→21:32)
[2023-05-29] MEDS ORDERED: NS 1/2 1,000 ML IV 1,000 ML IV ONE ×2 (09:58→21:02)
[2023-05-29] MEDS ORDERED: CONSULT PHARMACY - POTASSIUM & MAGNESIUM XX SCH (12:00)
[2023-05-29] MEDS: MAG-OX TAB PO SCH ×2 (12:00→12:45)
[2023-05-29] MEDS: PERCOCET TAB 5/325 MG PO PRN (15:02)
[2023-05-29] MEDS ORDERED: SALINE 0.9% 3 ML NEB TX ONE (17:59)
[2023-05-29] MEDS ORDERED: S2 RACEMIC EPINEPHRINE ONE (18:00)
[2023-05-29] MEDS ORDERED: SOLU-Medrol 125 MG VIAL IVP ONE (18:00)
[2023-05-29] MEDS ORDERED: S2 RACEMIC EPINEPHRINE NEB ONE (18:00)
[2023-05-29] MEDS ORDERED: SOLU-Medrol 125 MG VIAL ONE (18:06)
[2023-05-29] MEDS ORDERED: VERSED ONE ×2 (18:09→18:18)
[2023-05-29] MEDS ORDERED: AMIDATE INJ 40 MG VIAL ONE (18:09)
[2023-05-29] MEDS ORDERED: DIPRIVAN PREMIX 1 GRAM IV 1,000 MG/100 ML VIAL ONE (18:18)
[2023-05-29] MEDS ORDERED: NS 100 ML IV 100 ML ONE (18:19)
[2023-05-29] MEDS ORDERED: NS 50 ML IV 50 ML IV ONE (18:21)
--- NOTE | 2023-05-29 18:29 | PCM.PROG ---
Progress Note Progress Note for Day of Date of Exam: 05/29/23 Subjective Subjective: The patient is feeling better this morning. Her BNP is down from over 400 to in the 200s today. She is breathing better she reports. Her x-ray of her right knee revealed that she has arthritic changes that are fairly severe. We will continue her current treatment with IV Lasix. We will plan on repeating labs and a chest x-ray again tomorrow morning. I was called at around 1800 yesterday. The patient had aspirated some food and desatted. Afterwards, she developed stridor, and we had to call the emergency department physician to come up and intubate her. We had to move to the ICU afterwards and she is currently satting in the upper 90s. She is already on IV antibiotics which consist of Rocephin and doxycycline so she is covered in that area. We will sedate her overnight with propofol and Versed and see how she is doing in the morning and possibly try and wean her off the vent if possible. Respiratory was able to remove some food contents from her throat with suction which consisted of some chicken and broccoli. Past Medical Family Social History Allergies: Allergies metoclopramide [From Reglan] Allergy (Verified 05/29/23 01:18) nalbuphine Allergy (Verified 05/29/23 01:18) Vital Signs and I&O's Vital Signs: Vital Signs Temperature 97.6 F Temperature 98.0 F Pulse Rate [Left Brachial] 116 Pulse Rate [Left Brachial] 70 Respiratory Rate 18 Respiratory Rate 20 Blood Pressure [Right Arm] 137/67 Blood Pressure [Right Arm] 127/62 O2 Sat by Pulse Oximetry 96 O2 Sat by Pulse Oximetry 98 Intake and Output: Intake & Output 05/26/23 05/27/23 05/28/23 05/29/23 11:59 11:59 11:59 11:59 Intake Total 222 / 222 2991 / 2991 Output Total 300 / 300 3700 / 3700 Balance -78 / -78 -709 / -709 Physical Exam Oriented: Normal, Time, Person and Place Eyes: Normal Ear: Normal Nose: Normal Throat: Normal Cardiovascular: Normal Auscultation: Bowel Sounds: Normal Tenderness: Normal Skin: Normal Musculoskeletal: Normal Psychiatric: Normal Mood Description: Calm Affect: Normal Speech Pattern: Clear and Appropriate Laboratory and Diagnostics 05/29/23 05:43 05/29/23 05:43 Labs: 05/28/23 09:48 Sputum - Expectorated Sputum Sputum Culture - Preliminary 05/28/23 09:48 Sputum - Expectorated Sputum - Final Laboratory WBC 4.8 X10^3/uL (3.6-10.0) 05/29/23 05:43 RBC 3.25 X10^6/uL (3.5-5.4) L 05/29/23 05:43 Hgb 10.4 g/dL (12.0-16.0) L 05/29/23 05:43 Hct 31.5 % (36.0-47.0) L 05/29/23 05:43 MCV 96.8 fL (80.0-100.0) 05/29/23 05:43 MCH 31.9 pg (27.0-34.0) 05/29/23 05:43 MCHC 32.9 g/dL (33.0-35.0) L 05/29/23 05:43 RDW 15.1 % (11.6-16.5) 05/29/23 05:43 Plt Count 123 X10^3/uL (150.0-450.0) L 05/29/23 05:43 MPV 8.8 fL (7.4-11.0) 05/29/23 05:43 Neut % (Auto) 60.2 % (42.0-75.0) 05/29/23 05:43 Lymph % (Auto) 19.8 % (21.0-51.0) L 05/29/23 05:43 [place] % (Auto) 12.1 % (0.0-13.0) 05/29/23 05:43 Eos % (Auto) 7.2 % (0.9-2.9) H 05/29/23 05:43 Baso % (Auto) 0.7 % (0.2-1.0) 05/29/23 05:43 Neut # (Auto) 2.9 x10^3/uL (2.2-4.8) 05/29/23 05:43 Lymph # (Auto) 0.9 X10^3/uL (1.3-2.9) L 05/29/23 05:43 [place] # (Auto) 0.6 x10^3/uL (0.3-0.8) 05/29/23 05:43 Eos # (Auto) 0.3 x10^3/uL (0.0-0.2) H 05/29/23 05:43 Baso # (Auto) 0.0 X10^3/uL (0.0-0.1) 05/29/23 05:43 Absolute Nucleated RBC 0.1 /100WBC 05/29/23 05:43 PT 39.5 SECONDS (11.8-14.3) 05/28/23 00:58 INR Target Range - 05/28/23 00:58 INR 4.15 (0.8-1.3) H 05/28/23 00:58 APTT 46.0 SECONDS (22.9-36.5) H 05/28/23 00:58 PTT Comment - 05/28/23 00:58 Sodium 135 mmol/L (136-145) L 05/29/23 05:43 Corrected Sodium TNP 05/29/23 05:43 Potassium 4.4 mmol/L (3.5-5.1) 05/29/23 05:43 Chloride 101 mmol/L (98-107) 05/29/23 05:43 Carbon Dioxide 29.2 mmol/L (21-32) 05/29/23 05:43 BUN 35 mg/dL (7-18) H 05/29/23 05:43 Creatinine 1.04 mg/dL (0.55-1.02) H 05/29/23 05:43 Est GFR (MDRD) Af Amer > 60 (>60) 05/29/23 05:43 Est GFR (MDRD) Non-Af 54 (>60) L 05/29/23 05:43 Glucose 104 mg/dL (65-99) H 05/29/23 05:43 Calcium 8.4 mg/dL (8.5-10.1) L 05/29/23 05:43 Corrected Calcium 9.0 mg/dL (8.5-10.1) 05/29/23 05:43 Magnesium 1.9 mg/dL (2.0-2.9) L 05/29/23 05:43 Total Bilirubin 0.50 mg/dL (0.2-1.0) 05/29/23 05:43 AST 23 Units/L (15-37) 05/29/23 05:43 ALT 33 Units/L (12-78) 05/29/23 05:43 Alkaline Phosphatase 81 Units/L (46-116) 05/29/23 05:43 Creatine Kinase 65 Units/L (26-192) 05/28/23 00:58 Troponin I High Sens 6.9 ng/L (4.0-60.0) 05/28/23 00:58 B-Natriuretic Peptide 255 pg/mL (0-79) H 05/29/23 05:43 Total Protein 6.4 g/dL (6.4-8.2) 05/29/23 05:43 Albumin 3.3 g/dL (3.4-5.0) L 05/29/23 05:43 Globulin 3.1 g/dL (2.5-4.5) 05/29/23 05:43 Albumin/Globulin Ratio 1.1 Ratio (1.1-2.1) 05/29/23 05:43 SARS-CoV-2 (PCR) Negative (NEGATIVE) 05/28/23 00:50 Influenza Type A (PCR) Negative (NEGATIVE) 05/28/23 00:50 Influenza Type B (PCR) Negative (NEGATIVE) 05/28/23 00:50 RSV (PCR) Negative (NEGATIVE) 05/28/23 00:50 Plan (1) Acute hypoxic respiratory failure: Status: Acute Plan: While the patient was eating supper she aspirated some chicken and broccoli and it caused her to develop acute respiratory failure. She developed hypoxia and we had an intubating her. Respiratory was able to suction out some contents of chicken and broccoli and after intubation she is currently satting in the upper 90s. We are going to sedated overnight later rest and possibly try to extubate her in the morning if possible. She has been moved to the ICU this evening and will be monitored there. (2) CHF (congestive heart failure): Status: Acute Plan: Diuresed with IV Lasix. Recheck BNP and chest x-ray tomorrow. (3) Physical deconditioning: Status: Acute Plan: At patient's age and current condition she would be a poor candidate for physical therapy. (4) Pulmonary edema: Status: Acute Plan: Diuresis with IV Lasix. (5) Muscle spasm of right shoulder: Status: Acute Plan: Baclofen 5 mg p.o. 4 times daily for muscle spasm in right deltoid.
[2023-05-29] MEDS: VERSED 50 MG in NS 50 ML IV 40 ML IV PRN ×2 (18:30→21:57)
--- NOTE | 2023-05-29 18:45 | RAD ---
EXAM: CHEST, 1 VIEW HISTORY: intubation; COMPARISON: 10/27/2023 FINDINGS: An endotracheal tube has been placed with the tip proximally 3.5 cm above the miki. The cardiac si lhouette is enlarged with a tortuous thoracic aorta. A pacing device overlying the left hemithorax is observed. The lungs are clear without focal infiltrate or effusion. The bony thorax is unremarkab le. IMPRESSION: No acute cardiopulmonary disease. THIS IS AN ELECTRONICALLY VERIFIED FINAL REPORT 05/29/2023 6:42 PM - Electronically signed by Jayant Orellana MD
[2023-05-29] MEDS ORDERED: SALINE 0.9% 3 ML NEB TX NEB ONE (18:56)
[2023-05-29] MEDS: DIPRIVAN PREMIX 500 MG IV 500 MG/50 ML VIAL IV PRN (19:00)
[2023-05-29] MEDS ORDERED: ETOMIDATE IVP ONE (19:39)
[2023-05-29] MEDS ORDERED: VERSED IVP ONE (19:39)
[2023-05-29] MEDS ORDERED: DIPRIVAN PREMIX 500 MG IV 500 MG/50 ML VIAL IV ONE (19:40)
[2023-05-29 20:22] LABS: ABG BASE EXCESS 4.9 mmol/L (-2.0-2.0); ABG HCO3 27.9 mmol/L (22-26)
[2023-05-29] MEDS: LIPITOR TAB 20 MG PO SCH (20:52)
[2023-05-29] MEDS: REQUIP PO SCH (20:52)
[2023-05-29] MEDS ORDERED: DIPRIVAN PREMIX 500 MG IV 500 MG/50 ML VIAL IV SCH (21:00)
[2023-05-30] MEDS: DIPRIVAN PREMIX 500 MG IV 500 MG/50 ML VIAL IV PRN (02:53)
[2023-05-30] MEDS: NS 1/2 1,000 ML IV 1,000 ML IV SCH (03:11)
[2023-05-30 05:19] LABS: ABG BASE EXCESS 6.6 mmol/L (-2.0-2.0); ABG HCO3 28.7 mmol/L (22-26)
[2023-05-30 05:20] LABS: ABG ALLEN TEST POS
[2023-05-30 05:23] LABS: BASOPHILS % (AUTO) 0.2 % (0.2-1.0); EOSINOPHILS % (AUTO) 0.1 % (0.9-2.9); HEMATOCRIT 34.9 % (36.0-47.0); HEMOGLOBIN 11.5 g/dL (12.0-16.0); LYMPHOCYTES # (AUTO) 0.3 X10^3/uL (1.3-2.9); LYMPHOCYTES % (AUTO) 7.2 % (21.0-51.0); MEAN CORPUSCULAR HEMOGLOBIN 31.5 pg (27.0-34.0); MEAN CORPUSCULAR HGB CONC 33.1 g/dL (33.0-35.0); MEAN CORPUSCULAR VOLUME 95.1 fL (80.0-100.0); MEAN PLATELET VOLUME 8.9 fL (7.4-11.0); MONOCYTES # (AUTO) 0.1 x10^3/uL (0.3-0.8); MONOCYTES % (AUTO) 1.9 % (0.0-13.0); NEUTROPHILS # (AUTO) 3.8 x10^3/uL (2.2-4.8); NEUTROPHILS % (AUTO) 90.6 % (42.0-75.0); PLATELET COUNT 135 X10^3/uL (150.0-450.0); RED BLOOD COUNT 3.67 X10^6/uL (3.5-5.4); WHITE BLOOD COUNT 4.2 X10^3/uL (3.6-10.0)
[2023-05-30] MEDS: DUONEB 0.5 MG/3 MG (3 mL) NEB SCH ×3 (05:30→20:30)
[2023-05-30 05:46] LABS: ALANINE AMINOTRANSFERASE 74 Units/L (12-78); ALBUMIN 3.3 g/dL (3.4-5.0); ALKALINE PHOSPHATASE 149 Units/L (46-116); ASPARTATE AMINO TRANSFERASE 65 Units/L (15-37); BLOOD UREA NITROGEN 28 mg/dL (7-18); CALCIUM 8.6 mg/dL (8.5-10.1); CARBON DIOXIDE 25.3 mmol/L (21-32); CHLORIDE 100 mmol/L (98-107); COR CA(FOR HYPOALB) 9.2 mg/dL (8.5-10.1); COR NA(FOR HYPERGLY) 143 mmol/L (136-145); CREATININE 0.89 mg/dL (0.55-1.02); GLUCOSE 265 mg/dL (65-99); MAGNESIUM 1.8 mg/dL (2.0-2.9); SODIUM 139 mmol/L (136-145); TOTAL PROTEIN 6.8 g/dL (6.4-8.2); eGFR NON BLACK RACES > 60 (>60)
[2023-05-30] MEDS: VERSED 50 MG in NS 50 ML IV 40 ML IV PRN ×2 (05:49→08:17)
[2023-05-30 06:13] LABS: PLATELET MORPHOLOGY COMMENT NORMAL (NORMAL)
[2023-05-30] MEDS: LIORESAL PO SCH (06:26)
--- NOTE | 2023-05-30 06:46 | RAD ---
EXAM:KUBHISTORY:NG tube placementCOMPARISON:NoneFINDINGS:There is a nasogastric tube with its tip and side hole in the expected position of the stomach. There is diffuse dilatation of the colon present in a pattern suggestive of generalized ileus although distal colonic obstruction could not be entirely excluded. No significant small bowel dilatation identified. Regional skeleton is osteopenic but intact with the exception of multiple old lumbar compression fractures some of which have been previously treated with kyphoplasty.IMPRESSION:NG tube tip and side port in the expected position of the stomachDiffuse colonic dilatation in a pattern suggestive of ileus although a distal colonic obstruction could not be entirely excludedTHIS IS AN ELECTRONICALLY VERIFIED FINAL REPORT05/30/2023 6:43 AM - Electronically signed by Alfred Hong MD
[2023-05-30] MEDS ORDERED: CONSULT PHARMACY - POTASSIUM & MAGNESIUM XX SCH ×2 (07:00→08:00)
--- NOTE | 2023-05-30 07:25 | RAD ---
EXAM:Fall, right knee painHISTORY:Right knee three viewsCOMPARISON:09/08/2020FINDINGS:There is no evidence for fracture, lytic, or blastic lesion. No joint effusion or joint erosion is identified. There is severe tricompartmental degenerative joint disease present with severe medial compartment, lateral compartment, and patellofemoral compartment joint space narrowing with subchondral sclerosis. No joint effusion or joint erosion is identified. No periarticular soft tissue abnormalities identified. Findings are significantly progressive when compared with prior examination 09/08/2020.IMPRESSION:No definite acute fractureSevere tricompartmental degenerative joint disease progressive when compared with prior examinationTHIS IS AN ELECTRONICALLY VERIFIED FINAL REPORT05/30/2023 7:22 AM - Electronically signed by Alfred Hong MD
--- NOTE | 2023-05-30 07:29 | RAD ---
EXAM: Portable chest HISTORY: Follow-up respiratory failure COMPARISON: 05/21/2023 FINDINGS: There is an endotracheal tube in good position. There is a nasogastric tube in good position. The re is left-sided pacemaker present. Heart is enlarged. [place] are somewhat indistinct in the intersti tium is now more prominent than on the prior examination suggestive of mild interstitial edema. No a lveolar edema, alveolar infiltrates, areas of consolidation, or pleural effusions identified. Bony t horax is unremarkable. IMPRESSION: Cardiomegaly with interval development of mild interstitial edema since the prior examination. THIS IS AN ELECTRONICALLY VERIFIED FINAL REPORT 05/30/2023 7:26 AM - Electronically signed by Alfred Hong MD
[2023-05-30] MEDS: VIBRAMYCIN 100 MG in D5W 250 ML IV 250 ML IV SCH (08:16)
[2023-05-30] MEDS: LASIX IVP SCH ×2 (08:16→16:49)
[2023-05-30] MEDS: SYNTHROID INJ 100 mcg VIAL IVP SCH (08:16)
[2023-05-30] MEDS: LOVENOX INJ 40 MG SYR SC SCH (08:17)
[2023-05-30] MEDS: ROCEPHIN VIAL 1 GRAM 1 G in NS 100 ML IV 100 ML IV SCH (08:17)
[2023-05-30] MEDS ORDERED: MAGNESIUM SULFATE 1 GRAM/100 mL PREMIX 1 G/100 ML BAG IV SCH (09:00)
[2023-05-30] MEDS ORDERED: K-RIDER 10 MEQ/100 ML WATER 10 MEQ/100 ML BAG IV SCH (09:00)
[2023-05-30] MEDS: PULMICORT NEB TX 0.5 MG NEB SCH ×2 (09:25→20:30)
[2023-05-30] MEDS: POTASSIUM CHLORIDE IV SCH ×6 (10:00→23:26)
[2023-05-30] MEDS: NS IV SCH ×6 (10:00→23:26)
[2023-05-30] MEDS: [UNRECOGNIZED DRUG - OTHER] IV SCH ×6 (10:00→23:26)
[2023-05-30] MEDS: LEVAQUIN PREMIX IV 500 MG 500 MG/100 ML BAG IV SCH (14:30)
[2023-05-30] MEDS: MORPHINE SULFATE INJ 2 MG INJ IVP PRN (15:50)
[2023-05-30] MEDS: COLACE CAP 100 MG PO SCH (21:26)
[2023-05-30] MEDS: MILK OF MAGNESIA PO SCH (21:27)
[2023-05-31 05:03] LABS: BASOPHILS % (AUTO) 0.1 % (0.2-1.0); EOSINOPHILS % (AUTO) 0.2 % (0.9-2.9); HEMATOCRIT 32.6 % (36.0-47.0); HEMOGLOBIN 10.9 g/dL (12.0-16.0); LYMPHOCYTES # (AUTO) 0.7 X10^3/uL (1.3-2.9); LYMPHOCYTES % (AUTO) 7.7 % (21.0-51.0); MEAN CORPUSCULAR HEMOGLOBIN 31.7 pg (27.0-34.0); MEAN CORPUSCULAR HGB CONC 33.3 g/dL (33.0-35.0); MEAN CORPUSCULAR VOLUME 95.1 fL (80.0-100.0); MEAN PLATELET VOLUME 8.8 fL (7.4-11.0); NEUTROPHILS # (AUTO) 7.6 x10^3/uL (2.2-4.8); PLATELET COUNT 155 X10^3/uL (150.0-450.0); RED BLOOD COUNT 3.43 X10^6/uL (3.5-5.4); RED CELL DISTRIBUTION WIDTH 15.3 % (11.6-16.5); WHITE BLOOD COUNT 9.4 X10^3/uL (3.6-10.0)
[2023-05-31] MEDS: MORPHINE SULFATE INJ 2 MG INJ IVP PRN (05:05)
[2023-05-31 05:09] LABS: ALANINE AMINOTRANSFERASE 60 Units/L (12-78); ALBUMIN 3.1 g/dL (3.4-5.0); ALKALINE PHOSPHATASE 113 Units/L (46-116); ASPARTATE AMINO TRANSFERASE 39 Units/L (15-37); BLOOD UREA NITROGEN 30 mg/dL (7-18); CALCIUM 8.5 mg/dL (8.5-10.1); CARBON DIOXIDE 29.2 mmol/L (21-32); CHLORIDE 103 mmol/L (98-107); COR CA(FOR HYPOALB) 9.2 mg/dL (8.5-10.1); COR NA(FOR HYPERGLY) 141 mmol/L (136-145); CREATININE 0.91 mg/dL (0.55-1.02); GLUCOSE 153 mg/dL (65-99); POTASSIUM 3.8 mmol/L (3.5-5.1); SODIUM 140 mmol/L (136-145); TOTAL PROTEIN 6.4 g/dL (6.4-8.2); eGFR NON BLACK RACES > 60 (>60)
[2023-05-31] MEDS: DUONEB 0.5 MG/3 MG (3 mL) NEB SCH ×3 (06:04→20:20)
--- NOTE | 2023-05-31 07:23 | RAD ---
EXAM: CHEST, 1 VIEW HISTORY: PUMONARY EDEMA; CHF, COPD, CAD, CVA, DEMENTIA, GERD, HTN, PARKINSON'S SX: HYST, JOINT REPLACEMENT, PA GRACE, CLAU COMPARISON: Prior study or studies were utilized for comparison during interpretation with the most relevant herminio ed 05/30/2023 TECHNIQUE: CHEST, 1 VIEW FINDINGS: Chest: Lines and tubes: Left-sided pacemaker generator with lead or leads in satisfactory position. Transes ophageal enteric tube tip and side hole marker below the diaphragm. Tip crosses over into the right upper quadrant, suggesting post pyloric position Mediastinum: Cardiac and mediastinal shadow is within normal limits for size and contour. Pulmonary vessels: No pulmonary vascular congestion. Lung killian: Increased interstitial opacities are noted with improvement since yesterday Pleura: No effusion. No pneumothorax. Bones and soft tissues: No acute osseous or soft tissue abnormality. IMPRESSION: 1. Improved interstitial markings compared to yesterday 2. Enteric tube tip is likely post pyloric 3. ET tube has been removed. THIS IS AN ELECTRONICALLY VERIFIED FINAL REPORT 05/31/2023 7:20 AM - Electronically signed by Britton Montiel MD
[2023-05-31] MEDS ORDERED: CONSULT PHARMACY - POTASSIUM & MAGNESIUM XX SCH (08:00)
--- NOTE | 2023-05-31 08:58 | PCM.PROG ---
Progress Note Progress Note for Day of Date of Exam: 05/30/23 Subjective Subjective: This morning the patient is intubated but her vital signs are stable. Her labs look good today. We will go ahead and plan on extubating her if we were able to do that. We will initiate extubation protocol. Current labs vital signs are stable. Recheck routine labs again tomorrow morning and put in a consult for speech and swallowing studies. Past Medical Family Social History Allergies: Allergies metoclopramide [From Reglan] Allergy (Verified 05/29/23 01:18) nalbuphine Allergy (Verified 05/29/23 01:18) Vital Signs and I&O's Vital Signs: Vital Signs Temperature 97.8 F Temperature 97.4 F Pulse Rate 72 Pulse Rate 69 Pulse Rate 70 Pulse Rate 69 Respiratory Rate 23 Respiratory Rate 20 Respiratory Rate 24 Respiratory Rate 16 Respiratory Rate 27 Blood Pressure 149/68 Blood Pressure 125/68 Blood Pressure 149/63 Blood Pressure 123/60 O2 Sat by Pulse Oximetry 100 O2 Sat by Pulse Oximetry 100 O2 Sat by Pulse Oximetry 100 O2 Sat by Pulse Oximetry 100 Intake and Output: Intake & Output 05/28/23 05/29/23 05/30/23 05/31/23 11:59 11:59 11:59 11:59 Intake Total 222 / 222 2991 / 2991 3487 / 3487 2018 Output Total 300 / 300 3700 / 3700 5800 / 5800 2850 / 2850 Balance -78 / -78 -709 / -709 -2313 / -2313 -831 / -831 Physical Exam Oriented: Normal, Time, Person and Place Eyes: Normal Ear: Normal Nose: Normal Throat: Normal Cardiovascular: Normal Auscultation: Bowel Sounds: Normal Tenderness: Normal Skin: Normal Musculoskeletal: Normal Psychiatric: Normal Mood Description: Calm Affect: Normal Speech Pattern: Clear Laboratory and Diagnostics 05/31/23 04:20 05/31/23 04:20 Labs: 05/29/23 21:32 Sputum - Endotracheal Wash Sputum Culture - Preliminary 05/29/23 21:32 Sputum - Endotracheal Wash - Final 05/28/23 09:48 Sputum - Expectorated Sputum Sputum Culture - Preliminary Serratia Marcescens 05/28/23 09:48 Sputum - Expectorated Sputum - Final 05/28/23 09:52 Blood Blood Culture - Preliminary 05/28/23 09:57 Blood Blood Culture - Preliminary Laboratory WBC 9.4 X10^3/uL (3.6-10.0) 05/31/23 04:20 RBC 3.43 X10^6/uL (3.5-5.4) L 05/31/23 04:20 Hgb 10.9 g/dL (12.0-16.0) L 05/31/23 04:20 Hct 32.6 % (36.0-47.0) L 05/31/23 04:20 MCV 95.1 fL (80.0-100.0) 05/31/23 04:20 MCH 31.7 pg (27.0-34.0) 05/31/23 04:20 MCHC 33.3 g/dL (33.0-35.0) 05/31/23 04:20 RDW 15.3 % (11.6-16.5) 05/31/23 04:20 Plt Count 155 X10^3/uL (150.0-450.0) 05/31/23 04:20 Plt Count Comment Decreased (ADEQUATE) A 05/30/23 04:26 MPV 8.8 fL (7.4-11.0) 05/31/23 04:20 Neut % (Auto) 81.0 % (42.0-75.0) H 05/31/23 04:20 Lymph % (Auto) 7.7 % (21.0-51.0) L 05/31/23 04:20 [place] % (Auto) 11.0 % (0.0-13.0) 05/31/23 04:20 Eos % (Auto) 0.2 % (0.9-2.9) L 05/31/23 04:20 Baso % (Auto) 0.1 % (0.2-1.0) L 05/31/23 04:20 Neut # (Auto) 7.6 x10^3/uL (2.2-4.8) H 05/31/23 04:20 Lymph # (Auto) 0.7 X10^3/uL (1.3-2.9) L 05/31/23 04:20 [place] # (Auto) 1.0 x10^3/uL (0.3-0.8) H 05/31/23 04:20 Eos # (Auto) 0.0 x10^3/uL (0.0-0.2) 05/31/23 04:20 Baso # (Auto) 0.0 X10^3/uL (0.0-0.1) 05/31/23 04:20 Absolute Nucleated RBC 0.1 /100WBC 05/31/23 04:20 Total Counted 100 05/30/23 04:26 Neutrophils % (Manual) 85 % (39-76) H 05/30/23 04:26 Lymphocytes % (Manual) 12 % (13-43) L 05/30/23 04:26 Monocytes % (Manual) 3 % (4-9) L 05/30/23 04:26 Plt Morphology Comment Normal (NORMAL) 05/30/23 04:26 RBC Morphology Normal (NORMAL) 05/30/23 04:26 PT 39.5 SECONDS (11.8-14.3) 05/28/23 00:58 INR Target Range - 05/28/23 00:58 INR 4.15 (0.8-1.3) H 05/28/23 00:58 APTT 46.0 SECONDS (22.9-36.5) H 05/28/23 00:58 PTT Comment - 05/28/23 00:58 Sample Site R rad 05/30/23 05:14 ABG pH 7.560 (7.35-7.45) H* 05/30/23 05:14 ABG pCO2 32.0 mmHg (35.0-45.0) L 05/30/23 05:14 ABG pO2 88.0 mmHg (80.0-100.0) 05/30/23 05:14 ABG HCO3 28.7 mmol/L (22-26) H 05/30/23 05:14 ABG O2 Saturation 98.0 % (90-100) 05/30/23 05:14 ABG Base Excess 6.6 mmol/L (-2.0-2.0) H 05/30/23 05:14 David Test Pos 05/30/23 05:14 A-a Gradient 86.0 mmHg 05/30/23 05:14 FiO2 30.0 05/30/23 05:14 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 05/30/23 05:14 Sodium 140 mmol/L (136-145) 05/31/23 04:20 Corrected Sodium 141 mmol/L (136-145) 05/31/23 04:20 Potassium 3.8 mmol/L (3.5-5.1) 05/31/23 04:20 Chloride 103 mmol/L (98-107) 05/31/23 04:20 Carbon Dioxide 29.2 mmol/L (21-32) 05/31/23 04:20 BUN 30 mg/dL (7-18) H 05/31/23 04:20 Creatinine 0.91 mg/dL (0.55-1.02) 05/31/23 04:20 Est GFR (MDRD) Af Amer > 60 (>60) 05/31/23 04:20 Est GFR (MDRD) Non-Af > 60 (>60) 05/31/23 04:20 Glucose 153 mg/dL (65-99) H 05/31/23 04:20 Calcium 8.5 mg/dL (8.5-10.1) 05/31/23 04:20 Corrected Calcium 9.2 mg/dL (8.5-10.1) 05/31/23 04:20 Magnesium 2.3 mg/dL (2.0-2.9) 05/31/23 04:20 Total Bilirubin 0.50 mg/dL (0.2-1.0) 05/31/23 04:20 AST 39 Units/L (15-37) H 05/31/23 04:20 ALT 60 Units/L (12-78) 05/31/23 04:20 Alkaline Phosphatase 113 Units/L (46-116) 05/31/23 04:20 Creatine Kinase 65 Units/L (26-192) 05/28/23 00:58 Troponin I High Sens 6.9 ng/L (4.0-60.0) 05/28/23 00:58 B-Natriuretic Peptide 921 pg/mL (0-79) H 05/30/23 04:26 Total Protein 6.4 g/dL (6.4-8.2) 05/31/23 04:20 Albumin 3.1 g/dL (3.4-5.0) L 05/31/23 04:20 Globulin 3.3 g/dL (2.5-4.5) 05/31/23 04:20 Albumin/Globulin Ratio 0.9 Ratio (1.1-2.1) L 05/31/23 04:20 SARS-CoV-2 (PCR) Negative (NEGATIVE) 05/28/23 00:50 Influenza Type A (PCR) Negative (NEGATIVE) 05/28/23 00:50 Influenza Type B (PCR) Negative (NEGATIVE) 05/28/23 00:50 RSV (PCR) Negative (NEGATIVE) 05/28/23 00:50 Plan (1) Acute hypoxic respiratory failure: Status: Acute Plan: While the patient was eating supper she aspirated some chicken and broccoli and it caused her to develop acute respiratory failure. She developed hypoxia and we had an intubating her. Respiratory was able to suction out some contents of chicken and broccoli and after intubation she is currently satting in the upper 90s. We are going to sedated overnight later rest and possibly try to extubate her in the morning if possible. She has been moved to the ICU this evening and will be monitored there. (2) CHF (congestive heart failure): Status: Acute Plan: Diuresed with IV Lasix. Recheck BNP and chest x-ray tomorrow. (3) Physical deconditioning: Status: Acute Plan: At patient's age and current condition she would be a poor candidate for physical therapy. (4) Pulmonary edema: Status: Acute Plan: Diuresis with IV Lasix. (5) Muscle spasm of right shoulder: Status: Acute Plan: Baclofen 5 mg p.o. 4 times daily for muscle spasm in right deltoid.
[2023-05-31] MEDS ORDERED: MEDROL DOSEPAK 4 MG PER TAB PO NR (09:00)
[2023-05-31] MEDS ORDERED: MEDROL DOSEPAK 4 MG PER TAB PO SCH (09:00)
[2023-05-31] MEDS: PULMICORT NEB TX 0.5 MG NEB SCH ×2 (09:30→20:20)
[2023-05-31] MEDS: LASIX IVP SCH ×2 (10:03→18:05)
[2023-05-31] MEDS: SYNTHROID INJ 100 mcg VIAL IVP SCH (10:03)
[2023-05-31] MEDS: LEVAQUIN PREMIX IV 500 MG 500 MG/100 ML BAG IV SCH (10:04)
[2023-05-31] MEDS: LOVENOX INJ 40 MG SYR SC SCH (10:04)
[2023-05-31] MEDS: POTASSIUM CHLORIDE IV SCH ×2 (14:14)
[2023-05-31] MEDS: NS IV SCH ×2 (14:14)
[2023-05-31 19:20] VITALS: BMI 31.2
[2023-05-31] MEDS: MILK OF MAGNESIA PO SCH (21:14)
[2023-05-31] MEDS: COLACE CAP 100 MG PO SCH (21:15)
[2023-05-31] MEDS ORDERED: ALBUMIN HUMAN 25%- 100 ML 100 ML IV STA (23:14)
[2023-05-31] MEDS ORDERED: LASIX IVP ONE ×2 (23:15→23:27)
[2023-05-31] MEDS ORDERED: TUSSIONEX PENNKINETIC SUSP PO PRN (23:17)
[2023-05-31] MEDS ORDERED: ROBITUSSIN DM PO PRN (23:17)
[2023-05-31] MEDS ORDERED: ALBUMIN HUMAN 25%- 100 ML 100 ML ONE (23:27)
[2023-05-31] MEDS ORDERED: TUSSIONEX PENNKINETIC SUSP ONE (23:27)
[2023-06-01] MEDS: DUONEB 0.5 MG/3 MG (3 mL) NEB SCH ×3 (05:35→21:00)
[2023-06-01 05:36] LABS: BASOPHILS % (AUTO) 0.2 % (0.2-1.0); EOSINOPHILS # (AUTO) 0.3 x10^3/uL (0.0-0.2); EOSINOPHILS % (AUTO) 3.8 % (0.9-2.9); HEMATOCRIT 34.4 % (36.0-47.0); HEMOGLOBIN 11.3 g/dL (12.0-16.0); LYMPHOCYTES # (AUTO) 0.8 X10^3/uL (1.3-2.9); LYMPHOCYTES % (AUTO) 8.5 % (21.0-51.0); MEAN CORPUSCULAR HEMOGLOBIN 31.5 pg (27.0-34.0); MEAN CORPUSCULAR HGB CONC 32.7 g/dL (33.0-35.0); MEAN CORPUSCULAR VOLUME 96.3 fL (80.0-100.0); MEAN PLATELET VOLUME 8.9 fL (7.4-11.0); MONOCYTES # (AUTO) 0.8 x10^3/uL (0.3-0.8); NEUTROPHILS % (AUTO) 78.5 % (42.0-75.0); PLATELET COUNT 163 X10^3/uL (150.0-450.0); RED BLOOD COUNT 3.57 X10^6/uL (3.5-5.4); RED CELL DISTRIBUTION WIDTH 15.4 % (11.6-16.5); WHITE BLOOD COUNT 8.9 X10^3/uL (3.6-10.0)
[2023-06-01 05:42] LABS: ALANINE AMINOTRANSFERASE 55 Units/L (12-78); ALKALINE PHOSPHATASE 104 Units/L (46-116); ASPARTATE AMINO TRANSFERASE 36 Units/L (15-37); BLOOD UREA NITROGEN 30 mg/dL (7-18); CALCIUM 9.2 mg/dL (8.5-10.1); CHLORIDE 104 mmol/L (98-107); COR NA(FOR HYPERGLY) 142 mmol/L (136-145); CREATININE 0.87 mg/dL (0.55-1.02); GLUCOSE 154 mg/dL (65-99); POTASSIUM 3.4 mmol/L (3.5-5.1); SODIUM 141 mmol/L (136-145); TOTAL PROTEIN 7.2 g/dL (6.4-8.2); eGFR NON BLACK RACES > 60 (>60)
[2023-06-01] MEDS ORDERED: CONSULT PHARMACY - POTASSIUM & MAGNESIUM XX SCH ×2 (07:00→09:00)
[2023-06-01] MEDS: MORPHINE SULFATE INJ 2 MG INJ IVP PRN ×3 (07:56→23:39)
--- NOTE | 2023-06-01 07:56 | PCM.PROG ---
Progress Note Progress Note for Day of Date of Exam: 05/31/23 Subjective Subjective: The patient is status postextubation x 1 day. She is currently doing well but having trouble swallowing even pured food at this time. She likely has some edema from aspirating the food in her trachea. We will order a Medrol Dosepak to be taken to hopefully help with the inflammation. Will follow-up since swallowing studies 1 available. Labs stable this morning as well as vital signs. Repeat labs tomorrow morning. Past Medical Family Social History Allergies: Allergies metoclopramide [From Reglan] Allergy (Verified 05/29/23 01:18) nalbuphine Allergy (Verified 05/29/23 01:18) Vital Signs and I&O's Vital Signs: Vital Signs Temperature 98.4 F Temperature 99.0 F Pulse Rate 91 Pulse Rate 80 Pulse Rate 73 Pulse Rate 68 Pulse Rate 70 Pulse Rate 76 Pulse Rate 76 Respiratory Rate 23 Respiratory Rate 19 Respiratory Rate 25 Respiratory Rate 24 Respiratory Rate 18 Respiratory Rate 23 Respiratory Rate 23 Blood Pressure 164/79 Blood Pressure 158/67 Blood Pressure 144/65 Blood Pressure 158/74 Blood Pressure 159/70 Blood Pressure 144/69 Blood Pressure 144/69 O2 Sat by Pulse Oximetry 98 O2 Sat by Pulse Oximetry 98 O2 Sat by Pulse Oximetry 98 O2 Sat by Pulse Oximetry 99 O2 Sat by Pulse Oximetry 98 O2 Sat by Pulse Oximetry 96 O2 Sat by Pulse Oximetry 96 Intake and Output: Intake & Output 05/29/23 05/30/23 05/31/23 06/01/23 11:59 11:59 11:59 11:59 Intake Total 2991 / 2991 3487 / 3487 2018 1507 / 1507 Output Total 3700 / 3700 5800 / 5800 2850 / 2850 4350 / 4350 Balance -709 / -709 -2313 / -2313 -831 / -831 -2843 / -2843 Physical Exam Oriented: Normal, Time, Person and Place Eyes: Normal Ear: Normal Nose: Normal Throat: Normal Cardiovascular: Normal Auscultation: Bowel Sounds: Normal Tenderness: Normal Skin: Normal Musculoskeletal: Normal Psychiatric: Normal Mood Description: Calm Affect: Normal Speech Pattern: Clear Laboratory and Diagnostics 06/01/23 04:41 06/01/23 04:41 Labs: 05/29/23 21:32 Sputum - Endotracheal Wash Sputum Culture - Preliminary 05/29/23 21:32 Sputum - Endotracheal Wash - Final 05/28/23 09:48 Sputum - Expectorated Sputum Sputum Culture - Preliminary Serratia Marcescens 05/28/23 09:48 Sputum - Expectorated Sputum - Final 05/28/23 09:52 Blood Blood Culture - Preliminary 05/28/23 09:57 Blood Blood Culture - Preliminary Laboratory WBC 8.9 X10^3/uL (3.6-10.0) 06/01/23 04:41 RBC 3.57 X10^6/uL (3.5-5.4) 06/01/23 04:41 Hgb 11.3 g/dL (12.0-16.0) L 06/01/23 04:41 Hct 34.4 % (36.0-47.0) L 06/01/23 04:41 MCV 96.3 fL (80.0-100.0) 06/01/23 04:41 MCH 31.5 pg (27.0-34.0) 06/01/23 04:41 MCHC 32.7 g/dL (33.0-35.0) L 06/01/23 04:41 RDW 15.4 % (11.6-16.5) 06/01/23 04:41 Plt Count 163 X10^3/uL (150.0-450.0) 06/01/23 04:41 Plt Count Comment Decreased (ADEQUATE) A 05/30/23 04:26 MPV 8.9 fL (7.4-11.0) 06/01/23 04:41 Neut % (Auto) 78.5 % (42.0-75.0) H 06/01/23 04:41 Lymph % (Auto) 8.5 % (21.0-51.0) L 06/01/23 04:41 [place] % (Auto) 9.0 % (0.0-13.0) 06/01/23 04:41 Eos % (Auto) 3.8 % (0.9-2.9) H 06/01/23 04:41 Baso % (Auto) 0.2 % (0.2-1.0) 06/01/23 04:41 Neut # (Auto) 7.0 x10^3/uL (2.2-4.8) H 06/01/23 04:41 Lymph # (Auto) 0.8 X10^3/uL (1.3-2.9) L 06/01/23 04:41 [place] # (Auto) 0.8 x10^3/uL (0.3-0.8) 06/01/23 04:41 Eos # (Auto) 0.3 x10^3/uL (0.0-0.2) H 06/01/23 04:41 Baso # (Auto) 0.0 X10^3/uL (0.0-0.1) 06/01/23 04:41 Absolute Nucleated RBC 0.0 /100WBC 06/01/23 04:41 Total Counted 100 05/30/23 04:26 Neutrophils % (Manual) 85 % (39-76) H 05/30/23 04:26 Lymphocytes % (Manual) 12 % (13-43) L 05/30/23 04:26 Monocytes % (Manual) 3 % (4-9) L 05/30/23 04:26 Plt Morphology Comment Normal (NORMAL) 05/30/23 04:26 RBC Morphology Normal (NORMAL) 05/30/23 04:26 PT 39.5 SECONDS (11.8-14.3) 05/28/23 00:58 INR Target Range - 05/28/23 00:58 INR 4.15 (0.8-1.3) H 05/28/23 00:58 APTT 46.0 SECONDS (22.9-36.5) H 05/28/23 00:58 PTT Comment - 05/28/23 00:58 Sample Site R rad 05/30/23 05:14 ABG pH 7.560 (7.35-7.45) H* 05/30/23 05:14 ABG pCO2 32.0 mmHg (35.0-45.0) L 05/30/23 05:14 ABG pO2 88.0 mmHg (80.0-100.0) 05/30/23 05:14 ABG HCO3 28.7 mmol/L (22-26) H 05/30/23 05:14 ABG O2 Saturation 98.0 % (90-100) 05/30/23 05:14 ABG Base Excess 6.6 mmol/L (-2.0-2.0) H 05/30/23 05:14 David Test Pos 05/30/23 05:14 A-a Gradient 86.0 mmHg 05/30/23 05:14 FiO2 30.0 05/30/23 05:14 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 05/30/23 05:14 Sodium 141 mmol/L (136-145) 06/01/23 04:41 Corrected Sodium 142 mmol/L (136-145) 06/01/23 04:41 Potassium 3.4 mmol/L (3.5-5.1) L 06/01/23 04:41 Chloride 104 mmol/L (98-107) 06/01/23 04:41 Carbon Dioxide 32.0 mmol/L (21-32) 06/01/23 04:41 BUN 30 mg/dL (7-18) H 06/01/23 04:41 Creatinine 0.87 mg/dL (0.55-1.02) 06/01/23 04:41 Est GFR (MDRD) Af Amer > 60 (>60) 06/01/23 04:41 Est GFR (MDRD) Non-Af > 60 (>60) 06/01/23 04:41 Glucose 154 mg/dL (65-99) H 06/01/23 04:41 Calcium 9.2 mg/dL (8.5-10.1) 06/01/23 04:41 Corrected Calcium TNP 06/01/23 04:41 Magnesium 2.3 mg/dL (2.0-2.9) 05/31/23 04:20 Total Bilirubin 0.90 mg/dL (0.2-1.0) 06/01/23 04:41 AST 36 Units/L (15-37) 06/01/23 04:41 ALT 55 Units/L (12-78) 06/01/23 04:41 Alkaline Phosphatase 104 Units/L (46-116) 06/01/23 04:41 Creatine Kinase 65 Units/L (26-192) 05/28/23 00:58 Troponin I High Sens 6.9 ng/L (4.0-60.0) 05/28/23 00:58 B-Natriuretic Peptide 921 pg/mL (0-79) H 05/30/23 04:26 Total Protein 7.2 g/dL (6.4-8.2) 06/01/23 04:41 Albumin 4.0 g/dL (3.4-5.0) 06/01/23 04:41 Globulin 3.2 g/dL (2.5-4.5) 06/01/23 04:41 Albumin/Globulin Ratio 1.3 Ratio (1.1-2.1) 06/01/23 04:41 SARS-CoV-2 (PCR) Negative (NEGATIVE) 05/28/23 00:50 Influenza Type A (PCR) Negative (NEGATIVE) 05/28/23 00:50 Influenza Type B (PCR) Negative (NEGATIVE) 05/28/23 00:50 RSV (PCR) Negative (NEGATIVE) 05/28/23 00:50 Resp Viral Panel (PCR) See scanned report 05/28/23 09:48 Plan (1) Dysphagia: Status: Acute Plan: I will start the patient on Medrol Dosepak per GI tube today. Hopefully, this will help reverse her tracheal edema from aspiration a few days ago. Recheck in AM. Follow-up with swallowing study. (2) CHF (congestive heart failure): Status: Resolved Plan: Diuresed with IV Lasix. Recheck BNP and chest x-ray tomorrow. (3) Physical deconditioning: Status: Acute Plan: At patient's age and current condition she would be a poor candidate for physical therapy. (4) Pulmonary edema: Status: Acute Plan: Diuresis with IV Lasix. (5) Muscle spasm of right shoulder: Status: Acute Plan: Baclofen 5 mg p.o. 4 times daily for muscle spasm in right deltoid. (6) Acute hypoxic respiratory failure: Status: Resolved Plan: While the patient was eating supper she aspirated some chicken and broccoli and it caused her to develop acute respiratory failure. She developed hypoxia and we had an intubating her. Respiratory was able to suction out some contents of chicken and broccoli and after intubation she is currently satting in the upper 90s. We are going to sedated overnight later rest and possibly try to extubate her in the morning if possible. She has been moved to the ICU this evening and will be monitored there.
[2023-06-01] MEDS: PULMICORT NEB TX 0.5 MG NEB SCH ×2 (08:38→21:00)
[2023-06-01] MEDS ORDERED: VALIUM INJ IM PRN (08:39)
[2023-06-01] MEDS ORDERED: K RIDER IV ONE (09:00)
[2023-06-01] MEDS ORDERED: WATER IV ONE (09:00)
[2023-06-01] MEDS: K-RIDER 10 MEQ/100 ML WATER 10 MEQ/100 ML BAG IV SCH ×2 (09:30→13:14)
[2023-06-01] MEDS: LASIX IVP SCH ×2 (09:30→17:06)
[2023-06-01] MEDS: LEVAQUIN PREMIX IV 500 MG 500 MG/100 ML BAG IV SCH (09:30)
[2023-06-01] MEDS: SYNTHROID INJ 100 mcg VIAL IVP SCH (09:31)
[2023-06-01] MEDS: LOVENOX INJ 40 MG SYR SC SCH (09:31)
[2023-06-01] MEDS: VALIUM INJ IVP PRN ×2 (10:02→21:28)
--- NOTE | 2023-06-01 20:06 | PCM.PROG ---
Progress Note Progress Note for Day of Date of Exam: 06/01/23 Subjective Subjective: The patient is status postextubation on day 2. She still is doing well and is currently receiving her nutrition through a NG tube. The patient was evaluated for swallowing by speech therapy today. They recommended a pured diet. We went ahead and put the order in for that and will be starting her on that today. If she is does well with that through the day and overnight we may possibly. Her current vital signs are stable and her labs look good overall. She does report feeling better and has no new complaints this morning. The sputum culture the patient had when she came in and said that she grew out Serratia marcescens and Klebsiella pneumoniae. They are both sensitive to Le vaquin with HAYLEE's of less than 2 each. Her chest x-ray yesterday showed improvement and no focal infiltrates or consolidations. Past Medical Family Social History Allergies: Allergies metoclopramide [From Reglan] Allergy (Verified 05/29/23 01:18) nalbuphine Allergy (Verified 05/29/23 01:18) Review of Systems ROS: No change since H&P Vital Signs and I&O's Vital Signs: Vital Signs Temperature 98.1 F Pulse Rate 80 Pulse Rate 90 Pulse Rate 85 Pulse Rate 81 Pulse Rate 82 Pulse Rate 89 Pulse Rate 92 Pulse Rate 81 Pulse Rate 80 Respiratory Rate 23 Respiratory Rate 21 Respiratory Rate 40 Respiratory Rate 25 Respiratory Rate 28 Respiratory Rate 20 Respiratory Rate 26 Respiratory Rate 26 Respiratory Rate 20 Respiratory Rate 21 Respiratory Rate 50 Blood Pressure 143/65 Blood Pressure 147/71 Blood Pressure 149/73 Blood Pressure 149/73 Blood Pressure 149/73 Blood Pressure 130/74 Blood Pressure 120/57 Blood Pressure 154/74 Blood Pressure 158/74 O2 Sat by Pulse Oximetry 98 O2 Sat by Pulse Oximetry 96 O2 Sat by Pulse Oximetry 97 O2 Sat by Pulse Oximetry 98 O2 Sat by Pulse Oximetry 98 O2 Sat by Pulse Oximetry 97 O2 Sat by Pulse Oximetry 96 O2 Sat by Pulse Oximetry 98 O2 Sat by Pulse Oximetry 99 Intake and Output: Intake & Output 05/30/23 05/31/23 06/01/23 06/02/23 11:59 11:59 11:59 11:59 Intake Total 3487 / 3487 2018 1507 / 1507 310 / 310 Output Total 5800 / 5800 2850 / 2850 4350 / 4350 2099 / 2100 Balance -2313 / -2313 -831 / -831 -2843 / -2843 -1790 / -1790 Physical Exam Oriented: Normal, Time, Person and Place Eyes: Normal Ear: Normal Nose: Normal Throat: Normal Respiratory: Normal Cardiovascular: Normal Auscultation: Bowel Sounds: Normal Tenderness: Normal Skin: Normal Musculoskeletal: Normal Psychiatric: Normal Mood Description: Calm Affect: Normal Speech Pattern: Clear and Appropriate Laboratory and Diagnostics 06/01/23 04:41 06/01/23 04:41 Labs: 05/29/23 21:32 Sputum - Endotracheal Wash Sputum Culture - Preliminary 05/29/23 21:32 Sputum - Endotracheal Wash - Final 05/28/23 09:48 Sputum - Expectorated Sputum Sputum Culture - Final Serratia Marcescens Klebsiella Pneumoniae 05/28/23 09:48 Sputum - Expectorated Sputum - Final 05/28/23 09:52 Blood Blood Culture - Preliminary 05/28/23 09:57 Blood Blood Culture - Preliminary Laboratory WBC 8.9 X10^3/uL (3.6-10.0) 06/01/23 04:41 RBC 3.57 X10^6/uL (3.5-5.4) 06/01/23 04:41 Hgb 11.3 g/dL (12.0-16.0) L 06/01/23 04:41 Hct 34.4 % (36.0-47.0) L 06/01/23 04:41 MCV 96.3 fL (80.0-100.0) 06/01/23 04:41 MCH 31.5 pg (27.0-34.0) 06/01/23 04:41 MCHC 32.7 g/dL (33.0-35.0) L 06/01/23 04:41 RDW 15.4 % (11.6-16.5) 06/01/23 04:41 Plt Count 163 X10^3/uL (150.0-450.0) 06/01/23 04:41 Plt Count Comment Decreased (ADEQUATE) A 05/30/23 04:26 MPV 8.9 fL (7.4-11.0) 06/01/23 04:41 Neut % (Auto) 78.5 % (42.0-75.0) H 06/01/23 04:41 Lymph % (Auto) 8.5 % (21.0-51.0) L 06/01/23 04:41 [place] % (Auto) 9.0 % (0.0-13.0) 06/01/23 04:41 Eos % (Auto) 3.8 % (0.9-2.9) H 06/01/23 04:41 Baso % (Auto) 0.2 % (0.2-1.0) 06/01/23 04:41 Neut # (Auto) 7.0 x10^3/uL (2.2-4.8) H 06/01/23 04:41 Lymph # (Auto) 0.8 X10^3/uL (1.3-2.9) L 06/01/23 04:41 [place] # (Auto) 0.8 x10^3/uL (0.3-0.8) 06/01/23 04:41 Eos # (Auto) 0.3 x10^3/uL (0.0-0.2) H 06/01/23 04:41 Baso # (Auto) 0.0 X10^3/uL (0.0-0.1) 06/01/23 04:41 Absolute Nucleated RBC 0.0 /100WBC 06/01/23 04:41 Total Counted 100 05/30/23 04:26 Neutrophils % (Manual) 85 % (39-76) H 05/30/23 04:26 Lymphocytes % (Manual) 12 % (13-43) L 05/30/23 04:26 Monocytes % (Manual) 3 % (4-9) L 05/30/23 04:26 Plt Morphology Comment Normal (NORMAL) 05/30/23 04:26 RBC Morphology Normal (NORMAL) 05/30/23 04:26 PT 39.5 SECONDS (11.8-14.3) 05/28/23 00:58 INR Target Range - 05/28/23 00:58 INR 4.15 (0.8-1.3) H 05/28/23 00:58 APTT 46.0 SECONDS (22.9-36.5) H 05/28/23 00:58 PTT Comment - 05/28/23 00:58 Sample Site R rad 05/30/23 05:14 ABG pH 7.560 (7.35-7.45) H* 05/30/23 05:14 ABG pCO2 32.0 mmHg (35.0-45.0) L 05/30/23 05:14 ABG pO2 88.0 mmHg (80.0-100.0) 05/30/23 05:14 ABG HCO3 28.7 mmol/L (22-26) H 05/30/23 05:14 ABG O2 Saturation 98.0 % (90-100) 05/30/23 05:14 ABG Base Excess 6.6 mmol/L (-2.0-2.0) H 05/30/23 05:14 David Test Pos 05/30/23 05:14 A-a Gradient 86.0 mmHg 05/30/23 05:14 FiO2 30.0 05/30/23 05:14 Blood Gas 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 05/30/23 05:14 Sodium 141 mmol/L (136-145) 06/01/23 04:41 Corrected Sodium 142 mmol/L (136-145) 06/01/23 04:41 Potassium 3.4 mmol/L (3.5-5.1) L 06/01/23 04:41 Chloride 104 mmol/L (98-107) 06/01/23 04:41 Carbon Dioxide 32.0 mmol/L (21-32) 06/01/23 04:41 BUN 30 mg/dL (7-18) H 06/01/23 04:41 Creatinine 0.87 mg/dL (0.55-1.02) 06/01/23 04:41 Est GFR (MDRD) Af Amer > 60 (>60) 06/01/23 04:41 Est GFR (MDRD) Non-Af > 60 (>60) 06/01/23 04:41 Glucose 154 mg/dL (65-99) H 06/01/23 04:41 Calcium 9.2 mg/dL (8.5-10.1) 06/01/23 04:41 Corrected Calcium TNP 06/01/23 04:41 Magnesium 2.0 mg/dL (2.0-2.9) 06/01/23 04:41 Total Bilirubin 0.90 mg/dL (0.2-1.0) 06/01/23 04:41 AST 36 Units/L (15-37) 06/01/23 04:41 ALT 55 Units/L (12-78) 06/01/23 04:41 Alkaline Phosphatase 104 Units/L (46-116) 06/01/23 04:41 Creatine Kinase 65 Units/L (26-192) 05/28/23 00:58 Troponin I High Sens 6.9 ng/L (4.0-60.0) 05/28/23 00:58 B-Natriuretic Peptide 921 pg/mL (0-79) H 05/30/23 04:26 Total Protein 7.2 g/dL (6.4-8.2) 06/01/23 04:41 Albumin 4.0 g/dL (3.4-5.0) 06/01/23 04:41 Globulin 3.2 g/dL (2.5-4.5) 06/01/23 04:41 Albumin/Globulin Ratio 1.3 Ratio (1.1-2.1) 06/01/23 04:41 SARS-CoV-2 (PCR) Negative (NEGATIVE) 05/28/23 00:50 Influenza Type A (PCR) Negative (NEGATIVE) 05/28/23 00:50 Influenza Type B (PCR) Negative (NEGATIVE) 05/28/23 00:50 RSV (PCR) Negative (NEGATIVE) 05/28/23 00:50 Resp Viral Panel (PCR) See scanned report 05/28/23 09:48 Plan (1) Dysphagia: Status: Acute Plan: I will start the patient on Medrol Dosepak per GI tube today. Hopefully, this will help reverse her tracheal edema from aspiration a few days ago. Recheck in AM. Follow-up with swallowing study. (2) COPD (chronic obstructive pulmonary disease): Status: Chronic Plan: Continue IV Levaquin for positive sputum cultures for Klebsiella pneumoniae and Serratia marcescens. Both organisms are sensitive to Levaquin with HAYLEE's of less than 2 weeks. This was found on sputum cultures when she came in for worsening shortness of breath/dyspnea. (3) CHF (congestive heart failure): Status: Resolved Plan: Diuresed with IV Lasix. Recheck BNP and chest x-ray tomorrow. (4) Physical deconditioning: Status: Acute Plan: At patient's age and current condition she would be a poor candidate for physical therapy. (5) Pulmonary edema: Status: Acute Plan: Diuresis with IV Lasix. (6) Muscle spasm of right shoulder: Status: Acute Plan: Baclofen 5 mg p.o. 4 times daily for muscle spasm in right deltoid. (7) Acute hypoxic respiratory failure: Status: Resolved Plan: While the patient was eating supper she aspirated some chicken and broccoli and it caused her to develop acute respiratory failure. She developed hypoxia and we had an intubating her. Respiratory was able to suction out some contents of chicken and broccoli and after intubation she is currently satting in the upper 90s. We are going to sedated overnight later rest and possibly try to extubate her in the morning if possible. She has been moved to the ICU this evening and will be monitored there.
[2023-06-01] MEDS ORDERED: NovoLIN R (or HumuLIN R) SUBCUT PRN (20:15)
[2023-06-01] MEDS: COLACE CAP 100 MG PO SCH (20:35)
[2023-06-01] MEDS: MILK OF MAGNESIA PO SCH (21:27)
[2023-06-01] MEDS: POTASSIUM CHLORIDE IV SCH ×2 (21:39)
[2023-06-01] MEDS: NS IV SCH ×2 (21:39)
--- NOTE | 2023-06-02 05:14 | RAD ---
EXAM: CHEST, 1 VIEW HISTORY: CHF/DYSPNEA/SP ASPIRATION ; CHF, COPD, CAD, CVA, DEMENTIA, GERD, HTN, PARKINSON'S SX: HYST, JOINT REP LACEMENT, PACEMAKER, ABD COMPARISON: 05/31/2023 FINDINGS: The cardiomediastinal silhouette is widened but stable. Left-sided pacer and pacer wires demonstrate expected positioning. No acute airspace disease. No pneumothorax or effusion. No acute osseous abnormality. IMPRESSION: No acute cardiopulmonary disease. THIS IS AN ELECTRONICALLY VERIFIED FINAL REPORT 06/02/2023 5:11 AM - Electronically signed by Alfred Hong MD
[2023-06-02 05:34] LABS: BASOPHILS % (AUTO) 0.4 % (0.2-1.0); EOSINOPHILS # (AUTO) 0.5 x10^3/uL (0.0-0.2); EOSINOPHILS % (AUTO) 6.4 % (0.9-2.9); HEMATOCRIT 36.2 % (36.0-47.0); HEMOGLOBIN 11.8 g/dL (12.0-16.0); LYMPHOCYTES % (AUTO) 12.3 % (21.0-51.0); MEAN CORPUSCULAR HEMOGLOBIN 31.4 pg (27.0-34.0); MEAN CORPUSCULAR HGB CONC 32.5 g/dL (33.0-35.0); MEAN CORPUSCULAR VOLUME 96.4 fL (80.0-100.0); MEAN PLATELET VOLUME 8.8 fL (7.4-11.0); MONOCYTES % (AUTO) 11.9 % (0.0-13.0); NEUTROPHILS # (AUTO) 5.7 x10^3/uL (2.2-4.8); PLATELET COUNT 153 X10^3/uL (150.0-450.0); RED BLOOD COUNT 3.76 X10^6/uL (3.5-5.4); RED CELL DISTRIBUTION WIDTH 15.3 % (11.6-16.5); WHITE BLOOD COUNT 8.3 X10^3/uL (3.6-10.0)
[2023-06-02 05:47] LABS: ALANINE AMINOTRANSFERASE 45 Units/L (12-78); ALBUMIN 3.5 g/dL (3.4-5.0); ALKALINE PHOSPHATASE 95 Units/L (46-116); ASPARTATE AMINO TRANSFERASE 26 Units/L (15-37); BLOOD UREA NITROGEN 21 mg/dL (7-18); CALCIUM 9.1 mg/dL (8.5-10.1); CARBON DIOXIDE 35.9 mmol/L (21-32); CHLORIDE 105 mmol/L (98-107); COR NA(FOR HYPERGLY) 146 mmol/L (136-145); CREATININE 0.74 mg/dL (0.55-1.02); GLUCOSE 146 mg/dL (65-99); SODIUM 145 mmol/L (136-145); TOTAL PROTEIN 6.8 g/dL (6.4-8.2); eGFR NON BLACK RACES > 60 (>60)
[2023-06-02] MEDS: DUONEB 0.5 MG/3 MG (3 mL) NEB SCH ×3 (06:00→21:23)
[2023-06-02 06:17] LABS: POTASSIUM 2.8 mmol/L (3.5-5.1)
[2023-06-02] MEDS ORDERED: CONSULT PHARMACY - POTASSIUM & MAGNESIUM XX SCH (07:00)
[2023-06-02] MEDS ORDERED: MAG-OX TAB PO SCH (09:00)
[2023-06-02] MEDS ORDERED: K-DUR TAB 20 MEQ PO SCH (09:00)
[2023-06-02] MEDS ORDERED: KLOR-CON PO SCH (09:00)
[2023-06-02] MEDS ORDERED: NS 1/2 + KCL 20 MEQ/L 1,000 ML IV SCH (09:00)
--- NOTE | 2023-06-02 09:02 | PCM.PROG ---
Progress Note Progress Note for Day of Date of Exam: 06/02/23 Subjective Subjective: The patient is status post-extubation on day 3. She was seen by speech therapy yesterday. They performed a swallowing study and afterward recommended the patient be placed on a pured diet. This morning she is doing well and has been eating some pured foods and swallowing food down without problems at this time. She is only taking a small amount though, so we will watch her again through the day to make sure that she does okay. She also has hypokalemia with a potassium of 2.8 this morning, which will need correcting, as well as some mild hypomagnesemia, which will also be corrected. We are continuing with her IV antibiotics secondary to his positive sputum culture that grew out Klebsiella pneumonia and Serratia marcescens. These are both sensitive to the IV Levaquin she is receiving. We are going to restart her p.o. medications today as well to see if she tolerates them and to see if she can swallow them without getting choked. If she does tolerate her oral medications and is able to swallow food without any dysphagia we will plan on discharging her home tomorrow morning. A chest x-ray was done for this morning and it shows no acute cardiopulmonary process. The patient does complain of her hair falling out today and after reviewing her medications I see she takes metoprolol tartrate 50 mg twice daily so we will change that to carvedilol 12.5 mg p.o. twice daily since carvedilol does not have the side effect of hair loss like the other beta-blockers. Past Medical Family Social History Allergies: Allergies metoclopramide [From Reglan] Allergy (Verified 05/29/23 01:18) nalbuphine Allergy (Verified 05/29/23 01:18) Review of Systems ROS: No change since H&P Vital Signs and I&O's Vital Signs: Vital Signs Temperature 98.2 F Temperature 98.6 F Pulse Rate 87 Pulse Rate 79 Pulse Rate 74 Pulse Rate 69 Pulse Rate 69 Pulse Rate 69 Pulse Rate 69 Pulse Rate 76 Respiratory Rate 31 Respiratory Rate 18 Respiratory Rate 24 Respiratory Rate 18 Respiratory Rate 18 Respiratory Rate 19 Respiratory Rate 20 Respiratory Rate 21 Blood Pressure 144/76 Blood Pressure 162/74 Blood Pressure 161/74 Blood Pressure 157/74 Blood Pressure 153/74 Blood Pressure 151/73 Blood Pressure 142/69 Blood Pressure 139/68 O2 Sat by Pulse Oximetry 97 O2 Sat by Pulse Oximetry 98 O2 Sat by Pulse Oximetry 99 O2 Sat by Pulse Oximetry 97 O2 Sat by Pulse Oximetry 98 O2 Sat by Pulse Oximetry 99 O2 Sat by Pulse Oximetry 99 O2 Sat by Pulse Oximetry 97 Intake and Output: Intake & Output 05/30/23 05/31/23 06/01/23 06/02/23 11:59 11:59 11:59 11:59 Intake Total 3487 / 3487 2018 1507 / 1507 410 / 410 Output Total 5800 / 5800 2850 / 2850 4350 / 4350 3450 / 3450 Balance -2313 / -2313 -831 / -831 -2843 / -2843 -3040 / -3040 Physical Exam Oriented: Normal, Time, Person and Place Eyes: Normal Ear: Normal Nose: Normal Throat: Normal Respiratory: Normal Cardiovascular: Normal Auscultation: Bowel Sounds: Normal Tenderness: Normal Skin: Normal Musculoskeletal: Normal Psychiatric: Normal Mood Description: Calm Affect: Normal Speech Pattern: Clear and Appropriate Laboratory and Diagnostics 06/02/23 04:50 06/02/23 04:50 Labs: 05/29/23 21:32 Sputum - Endotracheal Wash Sputum Culture - Preliminary 05/29/23 21:32 Sputum - Endotracheal Wash - Final 05/28/23 09:48 Sputum - Expectorated Sputum Sputum Culture - Final Serratia Marcescens Klebsiella Pneumoniae 05/28/23 09:48 Sputum - Expectorated Sputum - Final 05/28/23 09:52 Blood Blood Culture - Preliminary 05/28/23 09:57 Blood Blood Culture - Preliminary Laboratory WBC 8.3 X10^3/uL (3.6-10.0) 06/02/23 04:50 RBC 3.76 X10^6/uL (3.5-5.4) 06/02/23 04:50 Hgb 11.8 g/dL (12.0-16.0) L 06/02/23 04:50 Hct 36.2 % (36.0-47.0) 06/02/23 04:50 MCV 96.4 fL (80.0-100.0) 06/02/23 04:50 MCH 31.4 pg (27.0-34.0) 06/02/23 04:50 MCHC 32.5 g/dL (33.0-35.0) L 06/02/23 04:50 RDW 15.3 % (11.6-16.5) 06/02/23 04:50 Plt Count 153 X10^3/uL (150.0-450.0) 06/02/23 04:50 Plt Count Comment Decreased (ADEQUATE) A 05/30/23 04:26 MPV 8.8 fL (7.4-11.0) 06/02/23 04:50 Neut % (Auto) 69.0 % (42.0-75.0) 06/02/23 04:50 Lymph % (Auto) 12.3 % (21.0-51.0) L 06/02/23 04:50 [place] % (Auto) 11.9 % (0.0-13.0) 06/02/23 04:50 Eos % (Auto) 6.4 % (0.9-2.9) H 06/02/23 04:50 Baso % (Auto) 0.4 % (0.2-1.0) 06/02/23 04:50 Neut # (Auto) 5.7 x10^3/uL (2.2-4.8) H 06/02/23 04:50 Lymph # (Auto) 1.0 X10^3/uL (1.3-2.9) L 06/02/23 04:50 [place] # (Auto) 1.0 x10^3/uL (0.3-0.8) H 06/02/23 04:50 Eos # (Auto) 0.5 x10^3/uL (0.0-0.2) H 06/02/23 04:50 Baso # (Auto) 0.0 X10^3/uL (0.0-0.1) 06/02/23 04:50 Absolute Nucleated RBC 0.1 /100WBC 06/02/23 04:50 Total Counted 100 05/30/23 04:26 Neutrophils % (Manual) 85 % (39-76) H 05/30/23 04:26 Lymphocytes % (Manual) 12 % (13-43) L 05/30/23 04:26 Monocytes % (Manual) 3 % (4-9) L 05/30/23 04:26 Plt Morphology Comment Normal (NORMAL) 05/30/23 04:26 RBC Morphology Normal (NORMAL) 05/30/23 04:26 PT 39.5 SECONDS (11.8-14.3) 05/28/23 00:58 INR Target Range - 05/28/23 00:58 INR 4.15 (0.8-1.3) H 05/28/23 00:58 APTT 46.0 SECONDS (22.9-36.5) H 05/28/23 00:58 PTT Comment - 05/28/23 00:58 Sample Site R rad 05/30/23 05:14 ABG pH 7.560 (7.35-7.45) H* 05/30/23 05:14 ABG pCO2 32.0 mmHg (35.0-45.0) L 05/30/23 05:14 ABG pO2 88.0 mmHg (80.0-100.0) 05/30/23 05:14 ABG HCO3 28.7 mmol/L (22-26) H 05/30/23 05:14 ABG O2 Saturation 98.0 % (90-100) 05/30/23 05:14 ABG Base Excess 6.6 mmol/L (-2.0-2.0) H 05/30/23 05:14 David Test Pos 05/30/23 05:14 A-a Gradient 86.0 mmHg 05/30/23 05:14 FiO2 30.0 05/30/23 05:14 Blood Gas Comments Tahir well ad compositor 05/30/23 05:14 Sodium 145 mmol/L (136-145) 06/02/23 04:50 Corrected Sodium 146 mmol/L (136-145) H 06/02/23 04:50 Potassium 2.8 mmol/L (3.5-5.1) L* 06/02/23 04:50 Chloride 105 mmol/L (98-107) 06/02/23 04:50 Carbon Dioxide 35.9 mmol/L (21-32) H 06/02/23 04:50 BUN 21 mg/dL (7-18) H 06/02/23 04:50 Creatinine 0.74 mg/dL (0.55-1.02) 06/02/23 04:50 Est GFR (MDRD) Af Amer > 60 (>60) 06/02/23 04:50 Est GFR (MDRD) Non-Af > 60 (>60) 06/02/23 04:50 Glucose 146 mg/dL (65-99) H 06/02/23 04:50 POC Glucose (mg/dL) 142 mg/dL (65-99) H 06/02/23 05:29 Calcium 9.1 mg/dL (8.5-10.1) 06/02/23 04:50 Corrected Calcium TNP 06/02/23 04:50 Magnesium 1.8 mg/dL (2.0-2.9) L 06/02/23 04:50 Total Bilirubin 1.00 mg/dL (0.2-1.0) 06/02/23 04:50 AST 26 Units/L (15-37) 06/02/23 04:50 ALT 45 Units/L (12-78) 06/02/23 04:50 Alkaline Phosphatase 95 Units/L (46-116) 06/02/23 04:50 Creatine Kinase 65 Units/L (26-192) 05/28/23 00:58 Troponin I High Sens 6.9 ng/L (4.0-60.0) 05/28/23 00:58 B-Natriuretic Peptide 380 pg/mL (0-79) H 06/02/23 04:50 Total Protein 6.8 g/dL (6.4-8.2) 06/02/23 04:50 Albumin 3.5 g/dL (3.4-5.0) 06/02/23 04:50 Globulin 3.3 g/dL (2.5-4.5) 06/02/23 04:50 Albumin/Globulin Ratio 1.1 Ratio (1.1-2.1) 06/02/23 04:50 SARS-CoV-2 (PCR) Negative (NEGATIVE) 05/28/23 00:50 Influenza Type A (PCR) Negative (NEGATIVE) 05/28/23 00:50 Influenza Type B (PCR) Negative (NEGATIVE) 05/28/23 00:50 RSV (PCR) Negative (NEGATIVE) 05/28/23 00:50 Resp Viral Panel (PCR) See scanned report 05/28/23 09:48 Plan (1) Dysphagia: Status: Acute Plan: I will start the patient on Medrol Dosepak per GI tube today. Hopefully, this will help reverse her tracheal edema from aspiration a few days ago. Recheck in AM. Follow-up with swallowing study. (2) COPD (chronic obstructive pulmonary disease): Status: Chronic Plan: Continue IV Levaquin for positive sputum cultures for Klebsiella pneumoniae and Serratia marcescens. Both organisms are sensitive to Levaquin with HAYLEE's of less than 2 weeks. This was found on sputum cultures when she came in for worsening shortness of breath/dyspnea. (3) Hypokalemia: Status: Acute Plan: I will restart the patient's IV fluid which is half-normal saline with 40 mEq of KCl. I will give her extra 20 mEq of calcium chloride solution p.o. x 1 this morning as well. Recheck potassium at 1600 this afternoon. (4) Hypomagnesemia: Status: Acute Plan: Replace with either magnesium oxide 4 magnesium sulfate per protocol. (5) CHF (congestive heart failure): Status: Resolved Narrative Support Text: The patient's CHF is stable with a BNP in the 300s this morning. Her chest x- ray is clear this morning. Plan: Repeat BMP tomorrow morning (6) Physical deconditioning: Status: Acute Plan: At patient's age and current condition she would be a poor candidate for physical therapy. (7) Pulmonary edema: Status: Acute Plan: Diuresis with IV Lasix. (8) Muscle spasm of right shoulder: Status: Acute Plan: Baclofen 5 mg p.o. 4 times daily for muscle spasm in right deltoid. (9) Acute hypoxic respiratory failure: Status: Resolved Plan: While the patient was eating supper she aspirated some chicken and broccoli and it caused her to develop acute respiratory failure. She developed hypoxia and we had an intubating her. Respiratory was able to suction out some contents of chicken and broccoli and after intubation she is currently satting in the upper 90s. We are going to sedated overnight later rest and possibly try to extubate her in the morning if possible. She has been moved to the ICU this evening and will be monitored there.
[2023-06-02] MEDS: ROBITUSSIN DM PO SCH ×4 (09:25→20:43)
[2023-06-02] MEDS: LASIX IVP SCH ×2 (09:25→16:20)
[2023-06-02] MEDS: CYMBALTA PO SCH (09:25)
[2023-06-02] MEDS: LEVAQUIN PREMIX IV 500 MG 500 MG/100 ML BAG IV SCH (09:25)
[2023-06-02] MEDS: COREG TAB 12.5 MG PO SCH ×2 (09:25→20:39)
[2023-06-02] MEDS: XARELTO PO SCH (09:25)
[2023-06-02] MEDS: DITROPAN TAB 5 MG PO SCH ×2 (09:25→20:40)
[2023-06-02] MEDS: SYNTHROID 125 mcg TAB PO SCH (09:26)
[2023-06-02] MEDS: POTASSIUM CHLORIDE IV SCH ×6 (09:28→22:19)
[2023-06-02] MEDS: [UNRECOGNIZED DRUG - OTHER] IV SCH ×6 (09:28→22:19)
[2023-06-02] MEDS: NS IV SCH ×6 (09:28→22:19)
[2023-06-02] MEDS ORDERED: POTASSIUM CHLORIDE LIQ PO ONE (09:30)
[2023-06-02] MEDS: PULMICORT NEB TX 0.5 MG NEB SCH ×2 (09:35→21:23)
[2023-06-02] MEDS: LIORESAL PO SCH ×2 (13:17→21:01)
[2023-06-02] MEDS: DIFLUCAN PO SCH (16:20)
[2023-06-02] MEDS: LIPITOR TAB 20 MG PO SCH ×4 (20:24→20:45)
[2023-06-02] MEDS: REQUIP PO SCH ×3 (20:30→20:44)
[2023-06-02] MEDS: COLACE CAP 100 MG PO SCH (20:38)
[2023-06-02] MEDS: PERCOCET TAB 5/325 MG PO PRN (20:41)
[2023-06-02] MEDS: MILK OF MAGNESIA PO SCH (20:45)
[2023-06-02] MEDS ORDERED: NS 500 ML IV 500 ML IV ONE (22:19)
[2023-06-02] MEDS: NS 500 ML IV 500 ML IV ONE (22:24)
[2023-06-02] MEDS ORDERED: LEVOPHED 8 MG/250 ML IV *PREMIX 8 MG/250 ML PLAST..BAG IV PRN (23:00)
[2023-06-02] MEDS ORDERED: LEVOPHED 8 MG/250 ML IV *PREMIX 8 MG/250 ML PLAST..BAG IV ONE (23:05)
--- NOTE | 2023-06-02 23:42 | EKG ---
Test Reason : Atrial flutter Blood Pressure : */* mmHG Vent. Rate : 76 BPM Atrial Rate : 326 BPM P-R Int : * ms QRS Dur : 98 ms QT Int : 410 ms P-R-T Axes : * -21 182 degrees QTc Int : 461 ms Atrial flutter with variable AV block with frequent ventricular-paced complexes Left ventricular hypertrophy with repolarization abnormality ( Reinaldo product ) Abnormal ECG When compared with ECG of 28-MAY-2023 01:00, Vent. rate has increased BY 7 BPM flutter waves more easily seen- ? if new Confirmed by Alberto De León MD ([id number]) on 06/03/2023 7:55:00 AM Referred By: Confirmed By: Alberto De León MD
[2023-06-03 05:32] LABS: BASOPHILS # (AUTO) 0.1 X10^3/uL (0.0-0.1); BASOPHILS % (AUTO) 0.6 % (0.2-1.0); EOSINOPHILS # (AUTO) 0.8 x10^3/uL (0.0-0.2); HEMATOCRIT 35.6 % (36.0-47.0); HEMOGLOBIN 11.7 g/dL (12.0-16.0); LYMPHOCYTES # (AUTO) 1.7 X10^3/uL (1.3-2.9); LYMPHOCYTES % (AUTO) 18.6 % (21.0-51.0); MEAN CORPUSCULAR HEMOGLOBIN 31.6 pg (27.0-34.0); MEAN CORPUSCULAR HGB CONC 32.9 g/dL (33.0-35.0); MEAN CORPUSCULAR VOLUME 96.1 fL (80.0-100.0); MEAN PLATELET VOLUME 9.1 fL (7.4-11.0); MONOCYTES # (AUTO) 1.1 x10^3/uL (0.3-0.8); MONOCYTES % (AUTO) 11.3 % (0.0-13.0); NEUTROPHILS # (AUTO) 5.7 x10^3/uL (2.2-4.8); NEUTROPHILS % (AUTO) 60.5 % (42.0-75.0); PLATELET COUNT 175 X10^3/uL (150.0-450.0); RED CELL DISTRIBUTION WIDTH 15.5 % (11.6-16.5); WHITE BLOOD COUNT 9.4 X10^3/uL (3.6-10.0)
[2023-06-03 05:36] LABS: ALANINE AMINOTRANSFERASE 42 Units/L (12-78); ALBUMIN 3.2 g/dL (3.4-5.0); ALKALINE PHOSPHATASE 89 Units/L (46-116); ASPARTATE AMINO TRANSFERASE 24 Units/L (15-37); BLOOD UREA NITROGEN 27 mg/dL (7-18); CALCIUM 8.6 mg/dL (8.5-10.1); CARBON DIOXIDE 31.8 mmol/L (21-32); CHLORIDE 104 mmol/L (98-107); COR CA(FOR HYPOALB) 9.2 mg/dL (8.5-10.1); COR NA(FOR HYPERGLY) 143 mmol/L (136-145); CREATININE 0.96 mg/dL (0.55-1.02); GLUCOSE 168 mg/dL (65-99); POTASSIUM 3.4 mmol/L (3.5-5.1); SODIUM 141 mmol/L (136-145); TOTAL PROTEIN 6.4 g/dL (6.4-8.2); eGFR NON BLACK RACES 59 (>60)
[2023-06-03] MEDS: LIORESAL PO SCH ×2 (05:39→13:11)
[2023-06-03] MEDS: DUONEB 0.5 MG/3 MG (3 mL) NEB SCH ×3 (05:40→20:20)
[2023-06-03] MEDS ORDERED: CONSULT PHARMACY - POTASSIUM & MAGNESIUM XX SCH (07:00)
[2023-06-03] MEDS: COREG TAB 12.5 MG PO SCH (08:56)
[2023-06-03] MEDS: LASIX IVP SCH ×2 (08:57→18:35)
[2023-06-03] MEDS ORDERED: K-DUR TAB 20 MEQ PO SCH ×2 (09:00)
[2023-06-03] MEDS: PULMICORT NEB TX 0.5 MG NEB SCH ×2 (09:15→20:19)
[2023-06-03] MEDS: SYNTHROID 125 mcg TAB PO SCH (10:08)
[2023-06-03] MEDS: CYMBALTA PO SCH (10:09)
[2023-06-03] MEDS: ROBITUSSIN DM PO SCH ×4 (10:09→21:50)
[2023-06-03] MEDS: XARELTO PO SCH (10:09)
[2023-06-03] MEDS: LEVAQUIN PREMIX IV 500 MG 500 MG/100 ML BAG IV SCH (10:09)
[2023-06-03] MEDS: DIFLUCAN PO SCH (10:09)
[2023-06-03] MEDS: DITROPAN TAB 5 MG PO SCH ×2 (10:09→22:01)
[2023-06-03] MEDS: POTASSIUM CHLORIDE IV SCH ×6 (10:10→21:51)
[2023-06-03] MEDS: [UNRECOGNIZED DRUG - OTHER] IV SCH ×6 (10:10→21:51)
[2023-06-03] MEDS: NS IV SCH ×6 (10:10→21:51)
[2023-06-03] MEDS ORDERED: NS 1,000 ML IV 1,000 ML ONE (15:47)
--- NOTE | 2023-06-03 21:12 | PCM.PROG ---
Progress Note Progress Note for Day of Date of Exam: 06/03/23 Subjective Subjective: The patient is status post-extubation on day 4. She was seen by speech therapy 2 days ago. They performed a swallowing study and afterward recommended the patient be placed on a pured diet. This morning she is doing well and has been eating some pured foods and swallowing food down without problems over the last 2 days. She is only taking a small amount though, so we will watch her again through the day to make sure that she does okay. She also has hypokalemia with a potassium of 3.4 this morning, which will need correcting. We are continuing with her IV antibiotics secondary to his positive sputum culture that grew out Klebsiella pneumonia and Serratia marcescens. These are both sensitive to the IV Levaquin she is receiving. We are going to restart her p.o. medications today as well to see if she tolerates them and to see if she can swallow them without getting choked. If she does tolerate her oral medications and is able to swallow food without any dysphagia we will plan on discharging her home tomorrow morning. A chest x-ray was done for yesterday morning and it shows no acute cardiopulmonary process. The patient was changed to carvedilol yesterday morning because she was complaining of hair loss with metoprolol. Unfortunately, she developed atrial flutter last night, then secondarily to that hypotension. She was started on Levophed drip, and by this morning, he has been weaned off. She remains mildly hypotensive so we are holding her beta-ace dose this morning. Will plan on restarting her metoprolol since her atrial flutter did better with that. We will plan on possibly discharging her home this afternoon if we were able to restart her metoprolol to tartrate 50 mg twice daily. The patient, however, remained hypotensive and had a few runs of atrial flutter, so we decided to keep her another day and overnight. I have discussed this with covering physician Dr. Juan Reece and he will try and get the patient discharged home over the w eekend as long as her atrial flutter stabilizes and her hypotension resolved. Past Medical Family Social History Allergies: Allergies metoclopramide [From Reglan] Allergy (Verified 05/29/23 01:18) nalbuphine Allergy (Verified 05/29/23 01:18) Review of Systems ROS: No change since H&P Vital Signs and I&O's Vital Signs: Vital Signs Temperature 97.8 F Temperature 98.1 F Temperature 98.3 F Pulse Rate 86 Pulse Rate 70 Pulse Rate 72 Pulse Rate 72 Pulse Rate 84 Pulse Rate 74 Pulse Rate 108 Pulse Rate 75 Pulse Rate 82 Pulse Rate 75 Pulse Rate 76 Respiratory Rate 24 Respiratory Rate 25 Respiratory Rate 34 Respiratory Rate 35 Respiratory Rate 34 Respiratory Rate 53 Respiratory Rate 39 Respiratory Rate 44 Respiratory Rate 20 Respiratory Rate 23 Blood Pressure 115/56 Blood Pressure 103/52 Blood Pressure 118/94 Blood Pressure 109/67 Blood Pressure 101/65 Blood Pressure 96/68 Blood Pressure 92/55 Blood Pressure 105/56 O2 Sat by Pulse Oximetry 98 O2 Sat by Pulse Oximetry 89 O2 Sat by Pulse Oximetry 85 O2 Sat by Pulse Oximetry 85 O2 Sat by Pulse Oximetry 98 O2 Sat by Pulse Oximetry 74 O2 Sat by Pulse Oximetry 100 O2 Sat by Pulse Oximetry 85 O2 Sat by Pulse Oximetry 97 O2 Sat by Pulse Oximetry 97 Intake and Output: Intake & Output 06/01/23 06/02/23 06/03/23 06/04/23 11:59 11:59 11:59 11:59 Intake Total 1507 / 1507 410 / 410 2895 / 2895 1260 / 1260 Output Total 4350 / 4350 3450 / 3450 1355 / 1355 300 / 300 Balance -2843 / -2843 -3040 / -3040 1540 / 1540 960 / 960 Physical Exam Oriented: Normal, Time, Person and Place Eyes: Normal Ear: Normal Nose: Normal Throat: Normal Respiratory: Normal Cardiovascular: Normal Auscultation: Bowel Sounds: Normal Tenderness: Normal Skin: Normal Musculoskeletal: Normal Psychiatric: Normal Mood Description: Calm Affect: Normal Speech Pattern: Clear and Appropriate Laboratory and Diagnostics 06/03/23 04:25 06/03/23 04:25 Labs: 05/28/23 09:52 Blood Blood Culture - Final 05/28/23 09:57 Blood Blood Culture - Final 05/29/23 21:32 Sputum - Endotracheal Wash Sputum Culture - Preliminary 05/29/23 21:32 Sputum - Endotracheal Wash - Final 05/28/23 09:48 Sputum - Expectorated Sputum Sputum Culture - Final Serratia Marcescens Klebsiella Pneumoniae 05/28/23 09:48 Sputum - Expectorated Sputum - Final Laboratory WBC 9.4 X10^3/uL (3.6-10.0) 06/03/23 04:25 RBC 3.70 X10^6/uL (3.5-5.4) 06/03/23 04:25 Hgb 11.7 g/dL (12.0-16.0) L 06/03/23 04:25 Hct 35.6 % (36.0-47.0) L 06/03/23 04:25 MCV 96.1 fL (80.0-100.0) 06/03/23 04:25 MCH 31.6 pg (27.0-34.0) 06/03/23 04:25 MCHC 32.9 g/dL (33.0-35.0) L 06/03/23 04:25 RDW 15.5 % (11.6-16.5) 06/03/23 04:25 Plt Count 175 X10^3/uL (150.0-450.0) 06/03/23 04:25 Plt Count Comment Decreased (ADEQUATE) A 05/30/23 04:26 MPV 9.1 fL (7.4-11.0) 06/03/23 04:25 Neut % (Auto) 60.5 % (42.0-75.0) 06/03/23 04:25 Lymph % (Auto) 18.6 % (21.0-51.0) L 06/03/23 04:25 [place] % (Auto) 11.3 % (0.0-13.0) 06/03/23 04:25 Eos % (Auto) 9.0 % (0.9-2.9) H 06/03/23 04:25 Baso % (Auto) 0.6 % (0.2-1.0) 06/03/23 04:25 Neut # (Auto) 5.7 x10^3/uL (2.2-4.8) H 06/03/23 04:25 Lymph # (Auto) 1.7 X10^3/uL (1.3-2.9) 06/03/23 04:25 [place] # (Auto) 1.1 x10^3/uL (0.3-0.8) H 06/03/23 04:25 Eos # (Auto) 0.8 x10^3/uL (0.0-0.2) H 06/03/23 04:25 Baso # (Auto) 0.1 X10^3/uL (0.0-0.1) 06/03/23 04:25 Absolute Nucleated RBC 0.1 /100WBC 06/03/23 04:25 Total Counted 100 05/30/23 04:26 Neutrophils % (Manual) 85 % (39-76) H 05/30/23 04:26 Lymphocytes % (Manual) 12 % (13-43) L 05/30/23 04:26 Monocytes % (Manual) 3 % (4-9) L 05/30/23 04:26 Plt Morphology Comment Normal (NORMAL) 05/30/23 04:26 RBC Morphology Normal (NORMAL) 05/30/23 04:26 PT 39.5 SECONDS (11.8-14.3) 05/28/23 00:58 INR Target Range - 05/28/23 00:58 INR 4.15 (0.8-1.3) H 05/28/23 00:58 APTT 46.0 SECONDS (22.9-36.5) H 05/28/23 00:58 PTT Comment - 05/28/23 00:58 Sample Site R rad 05/30/23 05:14 ABG pH 7.560 (7.35-7.45) H* 05/30/23 05:14 ABG pCO2 32.0 mmHg (35.0-45.0) L 05/30/23 05:14 ABG pO2 88.0 mmHg (80.0-100.0) 05/30/23 05:14 ABG HCO3 28.7 mmol/L (22-26) H 05/30/23 05:14 ABG O2 Saturation 98.0 % (90-100) 05/30/23 05:14 ABG Base Excess 6.6 mmol/L (-2.0-2.0) H 05/30/23 05:14 David Test Pos 05/30/23 05:14 A-a Gradient 86.0 mmHg 05/30/23 05:14 FiO2 30.0 05/30/23 05:14 Blood Gas Comments Tahir well shook splicer 05/30/23 05:14 Sodium 141 mmol/L (136-145) 06/03/23 04:25 Corrected Sodium 143 mmol/L (136-145) 06/03/23 04:25 Potassium 3.4 mmol/L (3.5-5.1) L 06/03/23 04:25 Chloride 104 mmol/L (98-107) 06/03/23 04:25 Carbon Dioxide 31.8 mmol/L (21-32) 06/03/23 04:25 BUN 27 mg/dL (7-18) H 06/03/23 04:25 Creatinine 0.96 mg/dL (0.55-1.02) 06/03/23 04:25 Est GFR (MDRD) Af Amer > 60 (>60) 06/03/23 04:25 Est GFR (MDRD) Non-Af 59 (>60) 06/03/23 04:25 Glucose 168 mg/dL (65-99) H 06/03/23 04:25 POC Glucose (mg/dL) 164 mg/dL (65-99) H 06/03/23 20:33 Calcium 8.6 mg/dL (8.5-10.1) 06/03/23 04:25 Corrected Calcium 9.2 mg/dL (8.5-10.1) 06/03/23 04:25 Magnesium 2.0 mg/dL (2.0-2.9) 06/03/23 04:25 Total Bilirubin 0.90 mg/dL (0.2-1.0) 06/03/23 04:25 AST 24 Units/L (15-37) 06/03/23 04:25 ALT 42 Units/L (12-78) 06/03/23 04:25 Alkaline Phosphatase 89 Units/L (46-116) 06/03/23 04:25 Creatine Kinase 65 Units/L (26-192) 05/28/23 00:58 Troponin I High Sens 6.9 ng/L (4.0-60.0) 05/28/23 00:58 B-Natriuretic Peptide 380 pg/mL (0-79) H 06/02/23 04:50 Total Protein 6.4 g/dL (6.4-8.2) 06/03/23 04:25 Albumin 3.2 g/dL (3.4-5.0) L 06/03/23 04:25 Globulin 3.2 g/dL (2.5-4.5) 06/03/23 04:25 Albumin/Globulin Ratio 1.0 Ratio (1.1-2.1) L 06/03/23 04:25 SARS-CoV-2 (PCR) Negative (NEGATIVE) 05/28/23 00:50 Influenza Type A (PCR) Negative (NEGATIVE) 05/28/23 00:50 Influenza Type B (PCR) Negative (NEGATIVE) 05/28/23 00:50 RSV (PCR) Negative (NEGATIVE) 05/28/23 00:50 Resp Viral Panel (PCR) See scanned report 05/28/23 09:48 Plan (1) Atrial flutter: Status: Acute Plan: Discontinue carvedilol and change the patient back to metoprolol tartrate 50 mg twice daily. If the patient's atrial flutter and hypotension had resolved by tomorrow morning the covering physician, Dr. Juan Reece may discharge the patient home. (2) Hypotension: Status: Acute Plan: The patient developed hypotension last night and has started on Levophed drip. By this morning, her hypotension has resolved, and the Levophed drip has been weaned off. I suspect the patient's hypotension is secondary to tachycardia secondary to her atrial flutter. I feel this gave her low cardiac o utput which in turn gave her hypotension. (3) Dysphagia: Status: Acute Plan: I will start the patient on Medrol Dosepak per GI tube today. Hopefully, this will help reverse her tracheal edema from aspiration a few days ago. Recheck in AM. Follow-up with swallowing study. (4) COPD (chronic obstructive pulmonary disease): Status: Chronic Plan: Continue IV Levaquin for positive sputum cultures for Klebsiella pneumoniae and Serratia marcescens. Both organisms are sensitive to Levaquin with HAYLEE's of less than 2 weeks. This was found on sputum cultures when she came in for worsening shortness of breath/dyspnea. (5) Hypokalemia: Status: Acute Plan: I will restart the patient's IV fluid which is half-normal saline with 40 mEq of KCl. I will give her extra 20 mEq of calcium chloride solution p.o. x 1 this morning as well. Recheck potassium at 1600 this afternoon. (6) Hypomagnesemia: Status: Acute Plan: Replace with either magnesium oxide 4 magnesium sulfate per protocol. (7) CHF (congestive heart failure): Status: Resolved Plan: Repeat BMP tomorrow morning (8) Physical deconditioning: Status: Acute Plan: At patient's age and current condition she would be a poor candidate for physical therapy. (9) Pulmonary edema: Status: Acute Plan: Diuresis with IV Lasix. (10) Muscle spasm of right shoulder: Status: Acute Plan: Baclofen 5 mg p.o. 4 times daily for muscle spasm in right deltoid. (11) Acute hypoxic respiratory failure: Status: Resolved Plan: While the patient was eating supper she aspirated some chicken and broccoli and it caused her to develop acute respiratory failure. She developed hypoxia and we had an intubating her. Respiratory was able to suction out some contents of chicken and broccoli and after intubation she is currently satting in the upper 90s. We are going to sedated overnight later rest and possibly try to extubate her in the morning if possible. She has been moved to the ICU this evening and will be monitored there.
[2023-06-03] MEDS: COLACE CAP 100 MG PO SCH (21:50)
[2023-06-03] MEDS: MILK OF MAGNESIA PO SCH (21:50)
[2023-06-03] MEDS: LIPITOR TAB 20 MG PO SCH (22:01)
[2023-06-03] MEDS: REQUIP PO SCH (22:02)
[2023-06-04] MEDS: LIORESAL PO SCH ×2 (01:04→06:08)
[2023-06-04 05:15] LABS: BASOPHILS # (AUTO) 0.1 X10^3/uL (0.0-0.1); BASOPHILS % (AUTO) 0.6 % (0.2-1.0); EOSINOPHILS # (AUTO) 0.7 x10^3/uL (0.0-0.2); EOSINOPHILS % (AUTO) 8.6 % (0.9-2.9); HEMATOCRIT 35.1 % (36.0-47.0); HEMOGLOBIN 11.5 g/dL (12.0-16.0); LYMPHOCYTES % (AUTO) 12.8 % (21.0-51.0); MEAN CORPUSCULAR HEMOGLOBIN 31.3 pg (27.0-34.0); MEAN CORPUSCULAR HGB CONC 32.6 g/dL (33.0-35.0); MEAN CORPUSCULAR VOLUME 95.9 fL (80.0-100.0); MEAN PLATELET VOLUME 8.9 fL (7.4-11.0); MONOCYTES # (AUTO) 0.8 x10^3/uL (0.3-0.8); MONOCYTES % (AUTO) 9.3 % (0.0-13.0); NEUTROPHILS # (AUTO) 5.6 x10^3/uL (2.2-4.8); NEUTROPHILS % (AUTO) 68.7 % (42.0-75.0); PLATELET COUNT 158 X10^3/uL (150.0-450.0); RED BLOOD COUNT 3.66 X10^6/uL (3.5-5.4); RED CELL DISTRIBUTION WIDTH 14.7 % (11.6-16.5); WHITE BLOOD COUNT 8.1 X10^3/uL (3.6-10.0)
[2023-06-04 05:29] LABS: ALANINE AMINOTRANSFERASE 42 Units/L (12-78); ALBUMIN 3.1 g/dL (3.4-5.0); ALKALINE PHOSPHATASE 85 Units/L (46-116); ASPARTATE AMINO TRANSFERASE 28 Units/L (15-37); BLOOD UREA NITROGEN 28 mg/dL (7-18); CALCIUM 8.8 mg/dL (8.5-10.1); CARBON DIOXIDE 31.5 mmol/L (21-32); CHLORIDE 103 mmol/L (98-107); COR CA(FOR HYPOALB) 9.5 mg/dL (8.5-10.1); COR NA(FOR HYPERGLY) 144 mmol/L (136-145); CREATININE 0.87 mg/dL (0.55-1.02); GLUCOSE 148 mg/dL (65-99); POTASSIUM 3.7 mmol/L (3.5-5.1); SODIUM 143 mmol/L (136-145); TOTAL PROTEIN 6.3 g/dL (6.4-8.2); eGFR NON BLACK RACES > 60 (>60)
[2023-06-04] MEDS: DUONEB 0.5 MG/3 MG (3 mL) NEB SCH ×2 (05:39→06:04)
[2023-06-04] MEDS ORDERED: CONSULT PHARMACY - POTASSIUM & MAGNESIUM XX SCH (06:00)
[2023-06-04] MEDS: SYNTHROID 125 mcg TAB PO SCH (08:46)
[2023-06-04] MEDS: ROBITUSSIN DM PO SCH (08:46)
[2023-06-04] MEDS: DITROPAN TAB 5 MG PO SCH (08:46)
[2023-06-04] MEDS: DIFLUCAN PO SCH (08:46)
[2023-06-04] MEDS: LEVAQUIN PREMIX IV 500 MG 500 MG/100 ML BAG IV SCH (08:46)
[2023-06-04] MEDS: CYMBALTA PO SCH (08:47)
[2023-06-04] MEDS: XARELTO PO SCH (08:47)
[2023-06-04] MEDS: LASIX IVP SCH (08:47)
[2023-06-04] MEDS ORDERED: K-DUR TAB 20 MEQ PO SCH (09:00)
[2023-06-04] MEDS ORDERED: LOPRESSOR TAB 50 MG PO SCH (09:00)
[2023-06-04 09:05] VITALS: TEMP 97.9
[2023-06-04] MEDS: PULMICORT NEB TX 0.5 MG NEB SCH (09:30)
[2023-06-04 10:00] VITALS: RESP 24
[2023-06-04 10:07] VITALS: BP 139/65; PULSE 70; O2SAT 98
[2023-06-04] MEDS: NS IV SCH ×3 (10:48)
[2023-06-04] MEDS: POTASSIUM CHLORIDE IV SCH ×3 (10:48)
[2023-06-04] MEDS: [UNRECOGNIZED DRUG - OTHER] IV SCH ×3 (10:48)
== END 2023-06-04 11:50 | disposition home health service (06) | DRG 291 ==
LOC: MED/SURG 00:06 → ER 00:06 → ICU 00:06 → MED/SURG 03:11
PROVIDERS: ADMIT Family Medicine; ATTEND Family Medicine
DX: M25.561 Pain in right knee; J44.9 Chronic obstructive pulmonary disease, unspecified; I48.92 Unspecified atrial flutter; B37.89 Other sites of candidiasis; B96.89 Other specified bacterial agents as the cause of diseases classified elsewhere; R13.11 Dysphagia, oral phase; I50.9 Heart failure, unspecified; R79.1 Abnormal coagulation profile; E83.42 Hypomagnesemia; M25.562 Pain in left knee; E87.6 Hypokalemia; R53.81 Other malaise; B96.1 Klebsiella pneumoniae [K. pneumoniae] as the cause of diseases classified elsewhere; M62.838 Other muscle spasm; Z20.822 Contact with and (suspected) exposure to COVID-19; R06.02 Shortness of breath; J96.01 Acute respiratory failure with hypoxia

== ENCOUNTER 2023-07-27 11:58 | Observation (INO) ==
[2023-07-27] MEDS ORDERED: ZOFRAN INJ 4 MG VIAL IVP PRN (12:02)
--- NOTE | 2023-07-27 13:06 | DR.H&P ---
H&P History & Physical for Day of: H&P Date: 07/27/23 Chief Complaint Chief Complaint: Abdominal pain with diarrhea Allergies Allergies Allergy/AdvReac Type Severity Reaction Status Date / Time metoclopramide [From Reglan] Allergy Verified 05/29/23 01:18 nalbuphine Allergy Verified 05/29/23 01:18 History of Present Illness History of Present Illness: This is a pleasant 83-year-old white female well- known to me. She comes in with a approximately week and a half history of abdominal pain with distention and diarrhea. The diarrhea/stool has been dark but she does take iron and has take is a bit of this also. Here in the office today she is tender in her right upper quadrant and epigastric area. Given that she is reporting dark tarry stool I think it is pertinent that I go ahead and direct admit her for further evaluation and treatment. I have called the charge nurse and and direct admitting her for further workup. 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, Hysterectomy, Joint Replacement, Ortho Surgery and Other Additional Surgical History: Pacemaker, Right SIN, Back Surgery x 3, Bladder Tact, Cataract Surgery Family History Family Medical History: Coronary Artery Disease, Heart Failure and Hypertension Medications Home Medications: Home Medications Medication Instructions Recorded Confirmed Type rivastigmine tartrate 4.5 mg 4.5 mg PO BID 05/28/23 07/27/23 History capsule Review of Systems Constitutional: Weakness Eyes: No Symptoms Reported ENT: No Symptoms Reported Respiratory: Cough and Shortness of Breath Cardiovascular: No Symptoms Reported Gastrointestinal: Nausea, Diarrhea and Melena Genitourinary: No Symptoms Reported Musculoskeletal: Shoulder Pain (Right shoulder) Skin: No Symptoms Reported Neurological: No Symptoms Reported Physical Exam Vital Signs: Vital Signs Blood Pressure 102/64 Oriented: Normal, Time, Person and Place Eyes: Normal Ear: Normal Nose: Normal Throat: Normal Respiratory: Clear Throughout Cardiovascular: Normal Auscultation: Bowel Sounds: Normal Tenderness: RUQ, Epigastric, Mild and Moderate Skin: Decreased [place] Musculoskeletal: Normal Psychiatric: Anxiety and Depression Mood Description: Depressed Affect: Flat Speech Pattern: Clear and Appropriate Assessment/Plan (1) Abdominal pain: Status: Acute Plan: Keep n.p.o. at this time. Check CT abdomen and pelvis with contrast. Check CBC, CMP and urinalysis. I will also check an abdominal series. (2) Abdominal distention: Status: Acute Plan: Pain relief with IV Dilaudid. (3) Melanotic stools: Status: Acute Plan: Check Hemoccult. I will start the patient on IV Protonix 40 mg IV twice daily. (4) Diarrhea: Status: Acute Plan: Check stool culture, WBCs, Hemoccult, parasite panel and C. difficile. I will go ahead and start cover the patient with Zosyn after we get the culture.
[2023-07-27 13:20] LABS: BASOPHILS % (AUTO) 0.5 % (0.2-1.0); EOSINOPHILS # (AUTO) 0.4 x10^3/uL (0.0-0.2); EOSINOPHILS % (AUTO) 4.5 % (0.9-2.9); HEMATOCRIT 33.5 % (36.0-47.0); HEMOGLOBIN 11.1 g/dL (12.0-16.0); LYMPHOCYTES # (AUTO) 1.4 X10^3/uL (1.3-2.9); LYMPHOCYTES % (AUTO) 17.5 % (21.0-51.0); MEAN CORPUSCULAR HEMOGLOBIN 31.6 pg (27.0-34.0); MEAN CORPUSCULAR HGB CONC 33.1 g/dL (33.0-35.0); MEAN CORPUSCULAR VOLUME 95.4 fL (80.0-100.0); MEAN PLATELET VOLUME 9.6 fL (7.4-11.0); MONOCYTES # (AUTO) 0.7 x10^3/uL (0.3-0.8); MONOCYTES % (AUTO) 8.3 % (0.0-13.0); NEUTROPHILS # (AUTO) 5.4 x10^3/uL (2.2-4.8); NEUTROPHILS % (AUTO) 69.2 % (42.0-75.0); PLATELET COUNT 178 X10^3/uL (150.0-450.0); RED BLOOD COUNT 3.51 X10^6/uL (3.5-5.4); RED CELL DISTRIBUTION WIDTH 15.2 % (11.6-16.5); WHITE BLOOD COUNT 7.8 X10^3/uL (3.6-10.0)
[2023-07-27] MEDS: ZOSYN VIAL 3.375 GRAMS 3.375 G in NS 100 ML IV 100 ML IV SCH (13:41)
[2023-07-27] MEDS: NS 250 ML IV 25 ML IV PRN (13:41)
[2023-07-27] MEDS: NS 1,000 ML IV 1,000 ML IV SCH (13:42)
[2023-07-27 13:52] VITALS: BMI 32.3
[2023-07-27 13:54] LABS: ALANINE AMINOTRANSFERASE 12 Units/L (12-78); ALBUMIN 3.6 g/dL (3.4-5.0); ALKALINE PHOSPHATASE 60 Units/L (46-116); ASPARTATE AMINO TRANSFERASE 23 Units/L (15-37); BLOOD UREA NITROGEN 39 mg/dL (7-18); CARBON DIOXIDE 32.2 mmol/L (21-32); CHLORIDE 108 mmol/L (98-107); COR NA(FOR HYPERGLY) 147 mmol/L (136-145); CREATININE 0.91 mg/dL (0.55-1.02); GLUCOSE 113 mg/dL (65-99); POTASSIUM 3.2 mmol/L (3.5-5.1); SODIUM 147 mmol/L (136-145); TOTAL PROTEIN 6.8 g/dL (6.4-8.2); eGFR NON BLACK RACES > 60 (>60)
--- NOTE | 2023-07-27 15:13 | RAD ---
EXAM:ACUTE ABDOMEN SERI ESHISTORY:abd pain; CHF, COPD, CAD, CVA, DEMENTIA, GERD, HTN, PARKINSON'S SX: HYST, JOINT REPLACEMENT, PACEMAKER, ABD .COMPARISON:None.TECHNIQUE:Upright and supine views of the abdomen, as well as frontal view of the chest, were submitted for interpretation.FINDINGS:The cardiomediastinal silhouette is within normal limits. Dual-chamber left subclavian pacer. Lungs are clear. 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 No definite radio-opaque calculi are visualized over the kidneys or expected course of the ureters. 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 Consider CT abdomen and pelvis for evaluation of cecal size.THIS IS AN ELECTRONICALLY VERIFIED FINAL REPORT07/27/2023 3:10 PM - Electronically signed by Oumar Levi MD
[2023-07-27 15:55] LABS: BILIRUBIN,URINE NEGATIVE (NEGATIVE); BLOOD/HEMOGLOBIN,URINE NEGATIVE (NEGATIVE); GLUCOSE, URINE NEGATIVE (NEGATIVE); KETONES,URINE NEGATIVE (NEGATIVE); LEUKOCYTE ESTERASE ,URINE NEGATIVE (NEGATIVE); NITRITES,URINE NEGATIVE (NEGATIVE); PROTEIN,URINE NEGATIVE (NEGATIVE); UROBILINOGEN,URINE NORMAL (NORMAL)
[2023-07-27 15:58] LABS: APPEARANCE,URINE CLEAR (CLEAR); COLOR,URINE YELLOW (YELLOW)
[2023-07-27] MEDS ORDERED: CONSULT PHARMACY - POTASSIUM & MAGNESIUM XX SCH (16:00)
[2023-07-27] MEDS: D5 1/2 NS + KCL 20 MEQ/L 1,000 ML IV SCH (16:57)
[2023-07-27] MEDS: NS 100 ML IV 100 ML ONE (16:59)
[2023-07-27] MEDS: PULMICORT NEB TX 0.5 MG NEB SCH (21:00)
[2023-07-27] MEDS: DUONEB 0.5 MG/3 MG (3 mL) NEB SCH (21:00)
--- NOTE | 2023-07-27 21:43 | CT ---
EXAM:CT ABDOMEN AND PELVIS WITH CONTRASTHISTORY:pt c/o RLQ abd pain; ortho, heartCOMPARISON:None.TECHNIQUE:Axial CT images were obtained through the abdomen and pelvis after the intravenous administration of Omnipaque 100 mL. Coronal reformatted images were included.Informed written consent was obtained prior to contrast administration.All CT scans at this facility use dose modulation, iterative reconstruction, and/or weight based dosing when appropriate to reduce radiation dose to as low as reasonably achievable.FINDINGS:LOWER THORAX: Within normal limits.ABDOMEN:LIVER: Low-density lesions likely representing cysts.GALLBLADDER: High density material which may represent sludge or layering stonesSPLEEN: Splenic cystsPANCREAS: Within normal limits.KIDNEYS: Large right renal cystADRENAL GLANDS: Within normal limits.GI TRACT: Dilated colon filled with air and retained fecal material to the level of the sigmoid colon where there is a beak like appearance. There is a moderate-sized hiatal herniaLYMPH NODES: No abnormally enlarged nodes.VESSELS: Atherosclerotic calcificationsPERITONEUM / RETROPERITONEUM: No free gas.PELVIS: Majority of the bladder is obscured from streak artifact from bilateral hip prosthesisBLADDER: Distended with urineGENITALS: Within normal limits.BONES: Degenerative changes. Bilateral hip prosthesis causing streak artifact from the metalIMPRESSION:Findings concerning for colonic ileus, however, there is a beak like appearance to the sigmoid colon which may be compression from the distended bladder filled with urine. There is a considerable amount of retained fecal material throughout the colon.THIS IS AN ELECTRONICALLY VERIFIED FINAL REPORT07/27/2023 9:40 PM - Electronically signed by Oumar Levi MD
--- NOTE | 2023-07-27 21:50 | RAD ---
EXAM:Chest x-ray portable one viewHISTORY:NG TUBE PLACEMENT;COMPARISON:June 02, 2023.TECHNIQUE:2 views were submitted for interpretation.FINDINGS:The NG tube is beyond the GE junction. Dual-chamber left subclavian pacer. Heart size, and lung status unchanged compared to the prior study with no acute consolidation or effusions. There is a prominent transverse colon filled with air.IMPRESSION:NG tube beyond the GE junctionTHIS IS AN ELECTRONICALLY VERIFIED FINAL REPORT07/27/2023 9:47 PM - Electronically signed by Oumar Levi MD
[2023-07-27] MEDS: DILAUDID INJ IVP PRN (23:40)
[2023-07-28 05:12] LABS: BASOPHILS % (AUTO) 0.5 % (0.2-1.0); EOSINOPHILS # (AUTO) 0.1 x10^3/uL (0.0-0.2); HEMATOCRIT 30.7 % (36.0-47.0); HEMOGLOBIN 10.3 g/dL (12.0-16.0); LYMPHOCYTES # (AUTO) 0.8 X10^3/uL (1.3-2.9); LYMPHOCYTES % (AUTO) 16.5 % (21.0-51.0); MEAN CORPUSCULAR HEMOGLOBIN 31.9 pg (27.0-34.0); MEAN CORPUSCULAR HGB CONC 33.5 g/dL (33.0-35.0); MEAN CORPUSCULAR VOLUME 95.3 fL (80.0-100.0); MEAN PLATELET VOLUME 9.3 fL (7.4-11.0); MONOCYTES # (AUTO) 0.6 x10^3/uL (0.3-0.8); MONOCYTES % (AUTO) 12.2 % (0.0-13.0); NEUTROPHILS # (AUTO) 3.1 x10^3/uL (2.2-4.8); NEUTROPHILS % (AUTO) 67.8 % (42.0-75.0); PLATELET COUNT 150 X10^3/uL (150.0-450.0); RED BLOOD COUNT 3.22 X10^6/uL (3.5-5.4); RED CELL DISTRIBUTION WIDTH 15.1 % (11.6-16.5); WHITE BLOOD COUNT 4.5 X10^3/uL (3.6-10.0)
[2023-07-28 05:18] LABS: ALANINE AMINOTRANSFERASE 12 Units/L (12-78); ALBUMIN 3.4 g/dL (3.4-5.0); ALKALINE PHOSPHATASE 56 Units/L (46-116); ASPARTATE AMINO TRANSFERASE 18 Units/L (15-37); BLOOD UREA NITROGEN 24 mg/dL (7-18); CALCIUM 8.5 mg/dL (8.5-10.1); CARBON DIOXIDE 34.9 mmol/L (21-32); CHLORIDE 109 mmol/L (98-107); COR NA(FOR HYPERGLY) 151 mmol/L (136-145); CREATININE 0.83 mg/dL (0.55-1.02); GLUCOSE 175 mg/dL (65-99); POTASSIUM 3.1 mmol/L (3.5-5.1); SODIUM 149 mmol/L (136-145); TOTAL PROTEIN 6.5 g/dL (6.4-8.2); eGFR NON BLACK RACES > 60 (>60)
--- NOTE | 2023-07-28 08:06 | DR.PROGNOT ---
HOSPITAL PROGRESS NOTE Progress Note for Day of: Progress Note Date: 07/28/23 Chief Complaint Chief Complaint: This 83-year-old female who was admitted with persistent abdominal distention and possible distal colon obstruction. Her CAT scan showed dilated colon with large amount of stool throughout the colon and rectum. NG tube is draining only mild amount of bile. Normal WBC and mild elevated BUN. Past Medical Family Social History Allergies: Allergies metoclopramide [From Reglan] Allergy (Verified 05/29/23 01:18) nalbuphine Allergy (Verified 05/29/23 01:18) Vital Signs Vital Signs: Vital Signs Temperature 97.7 F Pulse Rate [Right Radial] 70 Pulse Rate 70 Respiratory Rate 18 Respiratory Rate 20 Blood Pressure [Right Arm] 123/64 O2 Sat by Pulse Oximetry 98 O2 Sat by Pulse Oximetry 100 Physical Exam Oriented: Normal, Time, Person and Place Eyes: Normal Ear: Normal Nose: Normal Throat: Normal Cardiovascular: Normal GI:Auscultation: Normal GI:Palpation: Other (Distended abdomen with diffuse tenderness more towards the right side.) GI: Tenderness: RUQ, Epigastric, Mild and Moderate Skin: Decreased Turgur Musculoskeletal: Normal Psychiatric: Anxiety and Depression Mood Description: Depressed Affect: Flat Speech Pattern: Clear Laboratory and Diagnostics 07/28/23 04:30 07/28/23 04:30 Labs: Laboratory WBC 4.5 X10^3/uL (3.6-10.0) 07/28/23 04:30 RBC 3.22 X10^6/uL (3.5-5.4) L 07/28/23 04:30 Hgb 10.3 g/dL (12.0-16.0) L 07/28/23 04:30 Hct 30.7 % (36.0-47.0) L 07/28/23 04:30 MCV 95.3 fL (80.0-100.0) 07/28/23 04:30 MCH 31.9 pg (27.0-34.0) 07/28/23 04:30 MCHC 33.5 g/dL (33.0-35.0) 07/28/23 04:30 RDW 15.1 % (11.6-16.5) 07/28/23 04:30 Plt Count 150 X10^3/uL (150.0-450.0) 07/28/23 04:30 MPV 9.3 fL (7.4-11.0) 07/28/23 04:30 Neut % (Auto) 67.8 % (42.0-75.0) 07/28/23 04:30 Lymph % (Auto) 16.5 % (21.0-51.0) L 07/28/23 04:30 [place] % (Auto) 12.2 % (0.0-13.0) 07/28/23 04:30 Eos % (Auto) 3.0 % (0.9-2.9) H 07/28/23 04:30 Baso % (Auto) 0.5 % (0.2-1.0) 07/28/23 04:30 Neut # (Auto) 3.1 x10^3/uL (2.2-4.8) 07/28/23 04:30 Lymph # (Auto) 0.8 X10^3/uL (1.3-2.9) L 07/28/23 04:30 [place] # (Auto) 0.6 x10^3/uL (0.3-0.8) 07/28/23 04:30 Eos # (Auto) 0.1 x10^3/uL (0.0-0.2) 07/28/23 04:30 Baso # (Auto) 0.0 X10^3/uL (0.0-0.1) 07/28/23 04:30 Absolute Nucleated RBC 0.1 /100WBC 07/28/23 04:30 Sodium 149 mmol/L (136-145) H 07/28/23 04:30 Corrected Sodium 151 mmol/L (136-145) H 07/28/23 04:30 Potassium 3.1 mmol/L (3.5-5.1) L 07/28/23 04:30 Chloride 109 mmol/L (98-107) H 07/28/23 04:30 Carbon Dioxide 34.9 mmol/L (21-32) H 07/28/23 04:30 BUN 24 mg/dL (7-18) H 07/28/23 04:30 Creatinine 0.83 mg/dL (0.55-1.02) 07/28/23 04:30 Est GFR (MDRD) Af Amer > 60 (>60) 07/28/23 04:30 Est GFR (MDRD) Non-Af > 60 (>60) 07/28/23 04:30 Glucose 175 mg/dL (65-99) H 07/28/23 04:30 Calcium 8.5 mg/dL (8.5-10.1) 07/28/23 04:30 Corrected Calcium TNP 07/28/23 04:30 Total Bilirubin 0.70 mg/dL (0.2-1.0) 07/28/23 04:30 AST 18 Units/L (15-37) 07/28/23 04:30 ALT 12 Units/L (12-78) 07/28/23 04:30 Alkaline Phosphatase 56 Units/L (46-116) 07/28/23 04:30 C-Reactive Protein 3.10 mg/L (0-3.0) H 07/27/23 13:30 Total Protein 6.5 g/dL (6.4-8.2) 07/28/23 04:30 Albumin 3.4 g/dL (3.4-5.0) 07/28/23 04:30 Globulin 3.1 g/dL (2.5-4.5) 07/28/23 04:30 Albumin/Globulin Ratio 1.1 Ratio (1.1-2.1) 07/28/23 04:30 Specimen Type Random urine 07/27/23 15:32 Urine Color Yellow (YELLOW) 07/27/23 15:32 Urine Appearance Clear (CLEAR) 07/27/23 15:32 Urine pH 6.0 (5.0 - 8.0) 07/27/23 15:32 Ur Specific [place] 1.010 (1.000-1.030) 07/27/23 15:32 Urine Protein Negative (NEGATIVE) 07/27/23 15:32 Urine Glucose (UA) Negative (NEGATIVE) 07/27/23 15:32 Urine Ketones Negative (NEGATIVE) 07/27/23 15:32 Urine Blood Negative (NEGATIVE) 07/27/23 15:32 Urine Nitrite Negative (NEGATIVE) 07/27/23 15:32 Urine Bilirubin Negative (NEGATIVE) 07/27/23 15:32 Urine Urobilinogen Normal (NORMAL) 07/27/23 15:32 Ur Leukocyte Esterase Negative (NEGATIVE) 07/27/23 15:32 Assessment and Plan 1: Distended colon rule out distal bowel obstruction. Will give 2 enemas this morning and perform sigmoidoscopy later on today in an attempt to decompress the colon.
--- NOTE | 2023-07-28 08:29 | PCM.PROG ---
Progress Note Progress Note for Day of Date of Exam: 07/28/23 Subjective Subjective: The patient is alert and awake this morning. She reports she is feeling better since admission yesterday. Her abdomen remains distended with an NG tube in place. The CT scan showed that she had an ileus and a fair amount of retained fecal matter. A consult has been put in with general surgery, and Dr. Gan has ordered her enemas to help get rid of her fecal impaction. He plans on a sigmoidoscopy later today. I will follow up with the results and continue her current treatment at this time. At this time the patient's pain is controlled. 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 Her labs show that she has some hyper natremia and hypokalemia. I will change her IV fluid to D5W and we will replace her potassium via potassium replacement protocol. Past Medical Family Social History Allergies: Allergies metoclopramide [From Reglan] Allergy (Verified 05/29/23 01:18) nalbuphine Allergy (Verified 05/29/23 01:18) Review of Systems ROS: No change since H&P Vital Signs and I&O's Vital Signs: Vital Signs Temperature 97.7 F Temperature 97.7 F Pulse Rate [Right Radial] 70 Pulse Rate [Right Radial] 70 Pulse Rate 70 Respiratory Rate 16 Respiratory Rate 18 Blood Pressure [Right Arm] 133/65 Blood Pressure [Right Arm] 123/64 O2 Sat by Pulse Oximetry 100 O2 Sat by Pulse Oximetry 98 O2 Sat by Pulse Oximetry 100 Intake and Output: Intake & Output 07/25/23 07/26/23 07/27/23 07/28/23 11:59 11:59 11:59 11:59 Intake Total 1625 / 1625 Balance 1625 / 1625 Physical Exam Oriented: Normal, Time, Person and Place Eyes: Normal Ear: Normal Nose: Normal Throat: Normal Cardiovascular: Normal Auscultation: Bowel Sounds: Normal Tenderness: RUQ, Epigastric, Mild and Moderate Skin: Decreased Turgur Musculoskeletal: Normal Psychiatric: Anxiety and Depression Mood Description: Depressed Affect: Flat Speech Pattern: Clear Laboratory and Diagnostics 07/28/23 04:30 07/28/23 04:30 Labs: Laboratory WBC 4.5 X10^3/uL (3.6-10.0) 07/28/23 04:30 RBC 3.22 X10^6/uL (3.5-5.4) L 07/28/23 04:30 Hgb 10.3 g/dL (12.0-16.0) L 07/28/23 04:30 Hct 30.7 % (36.0-47.0) L 07/28/23 04:30 MCV 95.3 fL (80.0-100.0) 07/28/23 04:30 MCH 31.9 pg (27.0-34.0) 07/28/23 04:30 MCHC 33.5 g/dL (33.0-35.0) 07/28/23 04:30 RDW 15.1 % (11.6-16.5) 07/28/23 04:30 Plt Count 150 X10^3/uL (150.0-450.0) 07/28/23 04:30 MPV 9.3 fL (7.4-11.0) 07/28/23 04:30 Neut % (Auto) 67.8 % (42.0-75.0) 07/28/23 04:30 Lymph % (Auto) 16.5 % (21.0-51.0) L 07/28/23 04:30 [place] % (Auto) 12.2 % (0.0-13.0) 07/28/23 04:30 Eos % (Auto) 3.0 % (0.9-2.9) H 07/28/23 04:30 Baso % (Auto) 0.5 % (0.2-1.0) 07/28/23 04:30 Neut # (Auto) 3.1 x10^3/uL (2.2-4.8) 07/28/23 04:30 Lymph # (Auto) 0.8 X10^3/uL (1.3-2.9) L 07/28/23 04:30 [place] # (Auto) 0.6 x10^3/uL (0.3-0.8) 07/28/23 04:30 Eos # (Auto) 0.1 x10^3/uL (0.0-0.2) 07/28/23 04:30 Baso # (Auto) 0.0 X10^3/uL (0.0-0.1) 07/28/23 04:30 Absolute Nucleated RBC 0.1 /100WBC 07/28/23 04:30 Sodium 149 mmol/L (136-145) H 07/28/23 04:30 Corrected Sodium 151 mmol/L (136-145) H 07/28/23 04:30 Potassium 3.1 mmol/L (3.5-5.1) L 07/28/23 04:30 Chloride 109 mmol/L (98-107) H 07/28/23 04:30 Carbon Dioxide 34.9 mmol/L (21-32) H 07/28/23 04:30 BUN 24 mg/dL (7-18) H 07/28/23 04:30 Creatinine 0.83 mg/dL (0.55-1.02) 07/28/23 04:30 Est GFR (MDRD) Af Amer > 60 (>60) 07/28/23 04:30 Est GFR (MDRD) Non-Af > 60 (>60) 07/28/23 04:30 Glucose 175 mg/dL (65-99) H 07/28/23 04:30 Calcium 8.5 mg/dL (8.5-10.1) 07/28/23 04:30 Corrected Calcium TNP 07/28/23 04:30 Total Bilirubin 0.70 mg/dL (0.2-1.0) 07/28/23 04:30 AST 18 Units/L (15-37) 07/28/23 04:30 ALT 12 Units/L (12-78) 07/28/23 04:30 Alkaline Phosphatase 56 Units/L (46-116) 07/28/23 04:30 C-Reactive Protein 3.10 mg/L (0-3.0) H 07/27/23 13:30 Total Protein 6.5 g/dL (6.4-8.2) 07/28/23 04:30 Albumin 3.4 g/dL (3.4-5.0) 07/28/23 04:30 Globulin 3.1 g/dL (2.5-4.5) 07/28/23 04:30 Albumin/Globulin Ratio 1.1 Ratio (1.1-2.1) 07/28/23 04:30 Specimen Type Random urine 07/27/23 15:32 Urine Color Yellow (YELLOW) 07/27/23 15:32 Urine Appearance Clear (CLEAR) 07/27/23 15:32 Urine pH 6.0 (5.0 - 8.0) 07/27/23 15:32 Ur Specific [place] 1.010 (1.000-1.030) 07/27/23 15:32 Urine Protein Negative (NEGATIVE) 07/27/23 15:32 Urine Glucose (UA) Negative (NEGATIVE) 07/27/23 15:32 Urine Ketones Negative (NEGATIVE) 07/27/23 15:32 Urine Blood Negative (NEGATIVE) 07/27/23 15:32 Urine Nitrite Negative (NEGATIVE) 07/27/23 15:32 Urine Bilirubin Negative (NEGATIVE) 07/27/23 15:32 Urine Urobilinogen Normal (NORMAL) 07/27/23 15:32 Ur Leukocyte Esterase Negative (NEGATIVE) 07/27/23 15:32 Radiology Reviewed: Yes Plan (1) Abdominal pain: Status: Acute Plan: Keep n.p.o. at this time. Check CT abdomen and pelvis with contrast. Check CBC, CMP and urinalysis. I will also check an abdominal series. (2) Abdominal distention: Status: Acute Plan: Pain relief with IV Dilaudid. (3) Melanotic stools: Status: Acute Plan: Check Hemoccult. I will start the patient on IV Protonix 40 mg IV twice daily. (4) Diarrhea: Status: Acute Plan: Check stool culture, WBCs, Hemoccult, parasite panel and C. difficile. I will go ahead and start cover the patient with Zosyn after we get the culture. (5) Ileus: Status: Acute Plan: Enemas today. Sigmoidoscopy per Dr. Gan later today. Continue NG tube at this time. (6) Hypernatremia: Status: Acute Plan: Discontinue D5 one half normal saline with 20 mEq KCl. I will change patient to D5W at 100 cc/h. (7) Hypokalemia: Status: Acute Plan: Potassium replacement protocol.
[2023-07-28] MEDS ORDERED: K-RIDER 10 MEQ/100 ML WATER 10 MEQ/100 ML BAG IV SCH (09:00)
[2023-07-28] MEDS: D5 1/2 NS + KCL 40 MEQ/L 1,000 ML IV SCH (09:20)
[2023-07-28] MEDS: POTASSIUM CHLORIDE IV SCH (11:40)
[2023-07-28] MEDS: D5W IV SCH (11:40)
[2023-07-28] MEDS: LR 1,000 ML IV 1,000 ML IV ONE (12:15)
[2023-07-28] MEDS: DIPRIVAN VIAL 20 ML ONE (12:28)
[2023-07-28] MEDS ORDERED: ALPRAZOLAM ODT PO PRN (15:14)
[2023-07-28] MEDS: CARDIZEM CD 120 MG 24-HR PO SCH (16:10)
[2023-07-28] MEDS: CELEBREX PO SCH (16:12)
[2023-07-28] MEDS: ZYLOPRIM PO SCH (16:12)
[2023-07-28] MEDS: CYMBALTA PO SCH (16:12)
[2023-07-28] MEDS: OMNIPAQUE 350 mg/mL 100 mL BTL 100 ML ONE (20:11)
[2023-07-28] MEDS: CONSULT PHARMACY - POTASSIUM & MAGNESIUM XX SCH (20:12)
[2023-07-28] MEDS: K-DUR TAB 20 MEQ PO SCH (20:12)
[2023-07-28] MEDS: DITROPAN TAB 5 MG PO SCH (21:50)
[2023-07-28] MEDS: DESYREL PO SCH (21:50)
[2023-07-28] MEDS: REQUIP PO SCH (21:50)
[2023-07-28] MEDS: LIPITOR TAB 20 MG PO SCH (21:50)
[2023-07-28] MEDS: EXELON PO SCH (21:51)
[2023-07-28] MEDS: LASIX PO SCH (21:51)
[2023-07-28] MEDS: AMARYL TAB 4 MG PO SCH (21:51)
[2023-07-28] MEDS: LOPRESSOR TAB 50 MG PO SCH (21:52)
[2023-07-29] MEDS: SYNTHROID 25 mcg TAB PO SCH (05:48)
[2023-07-29 06:12] LABS: BASOPHILS % (AUTO) 0.6 % (0.2-1.0); EOSINOPHILS # (AUTO) 0.2 x10^3/uL (0.0-0.2); EOSINOPHILS % (AUTO) 4.4 % (0.9-2.9); HEMATOCRIT 29.3 % (36.0-47.0); HEMOGLOBIN 9.8 g/dL (12.0-16.0); LYMPHOCYTES # (AUTO) 0.8 X10^3/uL (1.3-2.9); LYMPHOCYTES % (AUTO) 17.5 % (21.0-51.0); MEAN CORPUSCULAR HEMOGLOBIN 31.8 pg (27.0-34.0); MEAN CORPUSCULAR HGB CONC 33.5 g/dL (33.0-35.0); MEAN CORPUSCULAR VOLUME 95.1 fL (80.0-100.0); MEAN PLATELET VOLUME 9.1 fL (7.4-11.0); MONOCYTES # (AUTO) 0.6 x10^3/uL (0.3-0.8); MONOCYTES % (AUTO) 11.8 % (0.0-13.0); NEUTROPHILS # (AUTO) 3.1 x10^3/uL (2.2-4.8); NEUTROPHILS % (AUTO) 65.7 % (42.0-75.0); PLATELET COUNT 124 X10^3/uL (150.0-450.0); RED BLOOD COUNT 3.08 X10^6/uL (3.5-5.4); RED CELL DISTRIBUTION WIDTH 15.4 % (11.6-16.5); WHITE BLOOD COUNT 4.8 X10^3/uL (3.6-10.0)
[2023-07-29 06:18] LABS: ALANINE AMINOTRANSFERASE 18 Units/L (12-78); ALKALINE PHOSPHATASE 49 Units/L (46-116); ASPARTATE AMINO TRANSFERASE 23 Units/L (15-37); BLOOD UREA NITROGEN 17 mg/dL (7-18); CALCIUM 8.7 mg/dL (8.5-10.1); CARBON DIOXIDE 32.4 mmol/L (21-32); CHLORIDE 106 mmol/L (98-107); COR CA(FOR HYPOALB) 9.5 mg/dL (8.5-10.1); COR NA(FOR HYPERGLY) 148 mmol/L (136-145); CREATININE 0.76 mg/dL (0.55-1.02); GLUCOSE 163 mg/dL (65-99); MAGNESIUM 1.7 mg/dL (2.0-2.9); POTASSIUM 3.7 mmol/L (3.5-5.1); SODIUM 146 mmol/L (136-145); TOTAL PROTEIN 6.1 g/dL (6.4-8.2); eGFR NON BLACK RACES > 60 (>60)
[2023-07-29] MEDS ORDERED: CONSULT PHARMACY - POTASSIUM & MAGNESIUM XX SCH (07:00)
[2023-07-29] MEDS: K-DUR TAB 20 MEQ PO SCH (09:03)
[2023-07-29] MEDS: MAGNESIUM SULFATE 1 GRAM/100 mL PREMIX 1 G/100 ML BAG IV SCH (09:04)
[2023-07-29 10:12] VITALS: PULSE 69
--- NOTE | 2023-07-29 10:12 | DR.PROGNOT ---
HOSPITAL PROGRESS NOTE Progress Note for Day of: Progress Note Date: 07/29/23 Chief Complaint Chief Complaint: s/p colonoscopy and decompression of the colon . no obstruction was found . had several bowel movements feeling better today , tolerating oral intake , no vomiting . normal WBC . afebrile .. Past Medical Family Social History Past Med/Fam/Surg Hx: No changes since H&P Allergies: Allergies metoclopramide [From Reglan] Allergy (Verified 05/29/23 01:18) nalbuphine Allergy (Verified 05/29/23 01:18) Review Of Systems ROS: No change since H&P Vital Signs Vital Signs: Vital Signs Temperature 98.0 F Pulse Rate [Right Radial] 69 Pulse Rate 75 Pulse Rate 79 Respiratory Rate 20 Blood Pressure [Right Arm] 131/63 O2 Sat by Pulse Oximetry 98 O2 Sat by Pulse Oximetry 98 O2 Sat by Pulse Oximetry 99 Physical Exam Oriented: Normal, Time, Person and Place Eyes: Normal Ear: Normal Nose: Normal Throat: Normal Cardiovascular: Normal GI:Auscultation: Normal GI:Palpation: Other (soft abdomen ,still with mild distention.. BS+ ) GI: Tenderness: RUQ, Epigastric, Mild and Moderate Skin: Decreased Turgur Musculoskeletal: Normal Psychiatric: Anxiety and Depression Mood Description: Depressed Affect: Flat Speech Pattern: Clear Laboratory and Diagnostics 07/29/23 05:42 07/29/23 05:42 Labs: Laboratory WBC 4.8 X10^3/uL (3.6-10.0) 07/29/23 05:42 RBC 3.08 X10^6/uL (3.5-5.4) L 07/29/23 05:42 Hgb 9.8 g/dL (12.0-16.0) L 07/29/23 05:42 Hct 29.3 % (36.0-47.0) L 07/29/23 05:42 MCV 95.1 fL (80.0-100.0) 07/29/23 05:42 MCH 31.8 pg (27.0-34.0) 07/29/23 05:42 MCHC 33.5 g/dL (33.0-35.0) 07/29/23 05:42 RDW 15.4 % (11.6-16.5) 07/29/23 05:42 Plt Count 124 X10^3/uL (150.0-450.0) L 07/29/23 05:42 MPV 9.1 fL (7.4-11.0) 07/29/23 05:42 Neut % (Auto) 65.7 % (42.0-75.0) 07/29/23 05:42 Lymph % (Auto) 17.5 % (21.0-51.0) L 07/29/23 05:42 [place] % (Auto) 11.8 % (0.0-13.0) 07/29/23 05:42 Eos % (Auto) 4.4 % (0.9-2.9) H 07/29/23 05:42 Baso % (Auto) 0.6 % (0.2-1.0) 07/29/23 05:42 Neut # (Auto) 3.1 x10^3/uL (2.2-4.8) 07/29/23 05:42 Lymph # (Auto) 0.8 X10^3/uL (1.3-2.9) L 07/29/23 05:42 [place] # (Auto) 0.6 x10^3/uL (0.3-0.8) 07/29/23 05:42 Eos # (Auto) 0.2 x10^3/uL (0.0-0.2) 07/29/23 05:42 Baso # (Auto) 0.0 X10^3/uL (0.0-0.1) 07/29/23 05:42 Absolute Nucleated RBC 0.1 /100WBC 07/29/23 05:42 Sodium 146 mmol/L (136-145) H 07/29/23 05:42 Corrected Sodium 148 mmol/L (136-145) H 07/29/23 05:42 Potassium 3.7 mmol/L (3.5-5.1) 07/29/23 05:42 Chloride 106 mmol/L (98-107) 07/29/23 05:42 Carbon Dioxide 32.4 mmol/L (21-32) H 07/29/23 05:42 BUN 17 mg/dL (7-18) 07/29/23 05:42 Creatinine 0.76 mg/dL (0.55-1.02) 07/29/23 05:42 Est GFR (MDRD) Af Amer > 60 (>60) 07/29/23 05:42 Est GFR (MDRD) Non-Af > 60 (>60) 07/29/23 05:42 Glucose 163 mg/dL (65-99) H 07/29/23 05:42 Calcium 8.7 mg/dL (8.5-10.1) 07/29/23 05:42 Corrected Calcium 9.5 mg/dL (8.5-10.1) 07/29/23 05:42 Magnesium 1.7 mg/dL (2.0-2.9) L 07/29/23 05:42 Total Bilirubin 0.70 mg/dL (0.2-1.0) 07/29/23 05:42 AST 23 Units/L (15-37) 07/29/23 05:42 ALT 18 Units/L (12-78) 07/29/23 05:42 Alkaline Phosphatase 49 Units/L (46-116) 07/29/23 05:42 C-Reactive Protein 3.10 mg/L (0-3.0) H 07/27/23 13:30 Total Protein 6.1 g/dL (6.4-8.2) L 07/29/23 05:42 Albumin 3.0 g/dL (3.4-5.0) L 07/29/23 05:42 Globulin 3.1 g/dL (2.5-4.5) 07/29/23 05:42 Albumin/Globulin Ratio 1.0 Ratio (1.1-2.1) L 07/29/23 05:42 Specimen Type Random urine 07/27/23 15:32 Urine Color Yellow (YELLOW) 07/27/23 15:32 Urine Appearance Clear (CLEAR) 07/27/23 15:32 Urine pH 6.0 (5.0 - 8.0) 07/27/23 15:32 Ur Specific [place] 1.010 (1.000-1.030) 07/27/23 15:32 Urine Protein Negative (NEGATIVE) 07/27/23 15:32 Urine Glucose (UA) Negative (NEGATIVE) 07/27/23 15:32 Urine Ketones Negative (NEGATIVE) 07/27/23 15:32 Urine Blood Negative (NEGATIVE) 07/27/23 15:32 Urine Nitrite Negative (NEGATIVE) 07/27/23 15:32 Urine Bilirubin Negative (NEGATIVE) 07/27/23 15:32 Urine Urobilinogen Normal (NORMAL) 07/27/23 15:32 Ur Leukocyte Esterase Negative (NEGATIVE) 07/27/23 15:32 Assessment and Plan 1: resolving pseudo obstruction of the large bowel . to advance diet . KUB this am .. d/c if tolerating diet
[2023-07-29 12:06] VITALS: BP 138/67; RESP 18; TEMP 97.4; O2SAT 99
--- NOTE | 2023-07-29 13:27 | PCM.DCPLAN ---
DISCHARGE SUMMARY Admission Date Date of Admission: 07/27/23 Discharge Date Discharge Date: 07/29/23 Admission Diagnoses (1) Abdominal pain: Status: Acute (2) Abdominal distention: Status: Acute (3) Melanotic stools: Status: Acute (4) Diarrhea: Status: Acute (5) Ileus: Status: Acute (6) Hypernatremia: Status: Acute (7) Hypokalemia: Status: Acute Discharge Diagnoses Discharge Diagnosis: 1. Pseudoobstruction secondary to ileus 2. Abdominal pain resolved 3. Abdominal distention resolved 4. Hypokalemia resolved 5. Hypernatremia resolved 6. Diarrhea resolved 7. Melanotic stool secondary to Pepto-Bismol use Discharge Medications Discharge Medications: Prescriptions: Hospital Course Vital Signs: Vital Signs Temperature 97.4 F Temperature 97.7 F Pulse Rate [Right Radial] 69 Pulse Rate [Right Radial] 69 Pulse Rate 75 Pulse Rate 79 Respiratory Rate 18 Respiratory Rate 19 Blood Pressure [Right Arm] 138/67 Blood Pressure [Right Arm] 134/68 O2 Sat by Pulse Oximetry 99 O2 Sat by Pulse Oximetry 98 O2 Sat by Pulse Oximetry 98 O2 Sat by Pulse Oximetry 98 Latest Lab Results: Laboratory Last Values WBC 4.8 X10^3/uL (3.6-10.0) 07/29/23 05:42 RBC 3.08 X10^6/uL (3.5-5.4) L 07/29/23 05:42 Hgb 9.8 g/dL (12.0-16.0) L 07/29/23 05:42 Hct 29.3 % (36.0-47.0) L 07/29/23 05:42 MCV 95.1 fL (80.0-100.0) 07/29/23 05:42 MCH 31.8 pg (27.0-34.0) 07/29/23 05:42 MCHC 33.5 g/dL (33.0-35.0) 07/29/23 05:42 RDW 15.4 % (11.6-16.5) 07/29/23 05:42 Plt Count 124 X10^3/uL (150.0-450.0) L 07/29/23 05:42 MPV 9.1 fL (7.4-11.0) 07/29/23 05:42 Neut % (Auto) 65.7 % (42.0-75.0) 07/29/23 05:42 Lymph % (Auto) 17.5 % (21.0-51.0) L 07/29/23 05:42 [place] % (Auto) 11.8 % (0.0-13.0) 07/29/23 05:42 Eos % (Auto) 4.4 % (0.9-2.9) H 07/29/23 05:42 Baso % (Auto) 0.6 % (0.2-1.0) 07/29/23 05:42 Neut # (Auto) 3.1 x10^3/uL (2.2-4.8) 07/29/23 05:42 Lymph # (Auto) 0.8 X10^3/uL (1.3-2.9) L 07/29/23 05:42 [place] # (Auto) 0.6 x10^3/uL (0.3-0.8) 07/29/23 05:42 Eos # (Auto) 0.2 x10^3/uL (0.0-0.2) 07/29/23 05:42 Baso # (Auto) 0.0 X10^3/uL (0.0-0.1) 07/29/23 05:42 Absolute Nucleated RBC 0.1 /100WBC 07/29/23 05:42 Sodium 146 mmol/L (136-145) H 07/29/23 05:42 Corrected Sodium 148 mmol/L (136-145) H 07/29/23 05:42 Potassium 3.7 mmol/L (3.5-5.1) 07/29/23 05:42 Chloride 106 mmol/L (98-107) 07/29/23 05:42 Carbon Dioxide 32.4 mmol/L (21-32) H 07/29/23 05:42 BUN 17 mg/dL (7-18) 07/29/23 05:42 Creatinine 0.76 mg/dL (0.55-1.02) 07/29/23 05:42 Est GFR (MDRD) Af Amer > 60 (>60) 07/29/23 05:42 Est GFR (MDRD) Non-Af > 60 (>60) 07/29/23 05:42 Glucose 163 mg/dL (65-99) H 07/29/23 05:42 Calcium 8.7 mg/dL (8.5-10.1) 07/29/23 05:42 Corrected Calcium 9.5 mg/dL (8.5-10.1) 07/29/23 05:42 Magnesium 1.7 mg/dL (2.0-2.9) L 07/29/23 05:42 Total Bilirubin 0.70 mg/dL (0.2-1.0) 07/29/23 05:42 AST 23 Units/L (15-37) 07/29/23 05:42 ALT 18 Units/L (12-78) 07/29/23 05:42 Alkaline Phosphatase 49 Units/L (46-116) 07/29/23 05:42 C-Reactive Protein 3.10 mg/L (0-3.0) H 07/27/23 13:30 Total Protein 6.1 g/dL (6.4-8.2) L 07/29/23 05:42 Albumin 3.0 g/dL (3.4-5.0) L 07/29/23 05:42 Globulin 3.1 g/dL (2.5-4.5) 07/29/23 05:42 Albumin/Globulin Ratio 1.0 Ratio (1.1-2.1) L 07/29/23 05:42 Specimen Type Random urine 07/27/23 15:32 Urine Color Yellow (YELLOW) 07/27/23 15:32 Urine Appearance Clear (CLEAR) 07/27/23 15:32 Urine pH 6.0 (5.0 - 8.0) 07/27/23 15:32 Ur Specific [place] 1.010 (1.000-1.030) 07/27/23 15:32 Urine Protein Negative (NEGATIVE) 07/27/23 15:32 Urine Glucose (UA) Negative (NEGATIVE) 07/27/23 15:32 Urine Ketones Negative (NEGATIVE) 07/27/23 15:32 Urine Blood Negative (NEGATIVE) 07/27/23 15:32 Urine Nitrite Negative (NEGATIVE) 07/27/23 15:32 Urine Bilirubin Negative (NEGATIVE) 07/27/23 15:32 Urine Urobilinogen Normal (NORMAL) 07/27/23 15:32 Ur Leukocyte Esterase Negative (NEGATIVE) 07/27/23 15:32 Hospital Course: This is a pleasant 83-year-old white female well-known to me. She comes in with a approximately week and a half history of abdominal pain with distention and diarrhea. The diarrhea/stool has been dark but she does take iron and has take is a bit of this also. Here in the office today she is tender in her right upper quadrant and epigastric area. Given that she is reporting dark tarry stool I think it is pertinent that I go ahead and direct admit her for further evaluation and treatment. I have called the charge nurse and and direct admitting her for further workup. We will go ahead and proceed with a CT scan of her abdomen and pelvis with contrast as well as routine lab work, abdominal series, urinalysis and stool workup. The workup revealed the patient was hyponatremic and had hypokalemia. She initially was started on IV normal saline but after we saw that she is hyponatremic we changed her to D5W with 20 mEq of KCl. The following day her potassium was still low we had an increase in her potassium component to 40 mill equivalents and IV fluid. We also consulted general surgery after she was admitted and he did a colonoscopy on the following day. She had a pseudoobstruction and he did a decompression of her abdomen because of the profound abdominal distention she had. She tolerated the proce dure well and had no problems afterwards. This morning she is doing well she is eating pured food and drinking fluid without any trouble. Her abdomen is nondistended and nonpainful at this time. We will discharge her home today and she can resume her regular home medications as before. There were no new prescriptions written for her at this time. I will see her back in my office in approximately 10 days for hospital follow-up. Patient is discharged in stable condition and she is told to call me if she has any problems or concerns prior to the 10-day follow-up.
--- NOTE | 2023-07-30 07:54 | RAD ---
EXAM: KUB HISTORY: 07/27/2023 COMPARISON: Pain FINDINGS: Re-demonstration of colon dilatation with increase in fecal burden. Visceral outlines are obscured by bowel content. No definite mass or ascites is identified. IMPRESSION: Persistent colon distention with fecal retention consistent with constipation. A distal obstruction is not identified but should be considered if unexplained colon distention persists. THIS IS AN ELECTRONICALLY VERIFIED FINAL REPORT 07/30/2023 7:50 AM - Electronically signed by Guzman Rosales MD
== END 2023-07-29 14:05 | disposition home health service (06) ==
LOC: MED/SURG
PROVIDERS: ADMIT Family Medicine; ATTEND Family Medicine
PROC: SIGMOID (2023-07-28 14:35)